=== PATIENT | female | born 1965 | race Caucasian/White ===

== ENCOUNTER 2022-08-27 06:59 | Inpatient (IN) ==
[2022-08-27] MEDS ORDERED: BUMETANIDE 1 MG/4 ML VIAL IV ONE ×3 (07:22→11:56)
[2022-08-27] MEDS ORDERED: NITROGLYCERIN 0.4 MG TAB.SUBL SL ONE (07:22)
[2022-08-27 07:24] LABS: POC Calcium, Ionized 1.02 (1.16-1.32); POC Potassium 4.6 (3.3-5.1)
[2022-08-27 08:10] LABS: Basophils # (Auto) 0.04 K/mcL (0.00-0.30); Basophils % (Auto) 0.3 % (0.0-2.0); Eosinophils # (Auto) 0.09 K/mcL (0.00-0.70); Eosinophils % (Auto) 0.7 % (0.0-7.0); Hematocrit 43.3 % (34.1-44.9); Hemoglobin 13.7 g/dL (11.2-15.7); Lymphocytes # (Auto) 1.54 K/mcL (1.50-4.80); Lymphocytes % (Auto) 12.5 % (15.5-49.0); Mean Cell Volume 95.4 fL (80.0-100.0); Mean Corpuscular HGB Conc 31.6 g/dL (31.0-36.0); Mean Platelet Volume 10.2 fL (8.8-12.5); Monocytes # (Auto) 0.79 K/mcL (0.10-0.90); Monocytes % (Auto) 6.4 % (1.0-12.0); Neutrophils % (Auto) 79.4 % (38.0-78.0); Platelet Count 280 K/mcL (140-440); RBC 4.54 M/mcL (3.59-5.38); Red Cell Distribution Width 14.7 % (11.5-14.5); WBC 12.4 K/mcL (4.5-11.0)
--- NOTE | 2022-08-27 08:41 | Emergency Department Note ---
HPI General Chief complaint: Shortness of Breath/Dyspnea Stated complaint: shortness of breath Time Seen by Provider: 08/27/22 07:22 Source: patient Mode of arrival: ambulatory Limitations: no limitations History of Present Illness HPI Narrative: Narrative: This 56-year-old female presents complaining of shortness of breath increasing over the last 2 to 3 weeks. She states she has been seen in ED's x3 at [facility] and here so far. She states she is compliant with her diuretics (Lasix and spironolactone). She previously was a smoker but states she has not in 2 weeks. She denies any chest pain or palpitations but does state that she has increased dyspnea on exertion over these last 2 weeks. She denies any increased sputum production fever or chills but does states she feels sweats from time to time. She has a mixed history of COPD and CHF with a mitral valve replacement in the distant past. She is also in atrial fib chronically (last normal sinus rhythm was in 2020 per EKGs) and is on anticoagulants as well amiodarone. Related Data Home Medications Medication Instructions Recorded Confirmed acetaminophen 500 mg tablet 500 mg PO .Q6-8H PRN Pain 07/23/21 08/27/22 (Tylenol Extra Strength) albuterol sulfate 90 mcg/actuation 2 puff inhalation .Q4-6H PRN sob 07/23/21 08/27/22 aerosol inhaler (ProAir HFA) hydroxyzine HCl 25 mg tablet 25 mg PO TID PRN Anxiety 07/23/21 08/27/22 ipratropium 20 mcg-albuterol 100 2 puff inhalation BID 07/23/21 08/27/22 mcg/actuation mist for inhalation levetiracetam 250 mg tablet 500 mg PO QDAY 07/23/21 08/27/22 (Keppra) lisinopril 2.5 mg tablet 2.5 mg PO QDAY 07/23/21 08/27/22 marijuana edibles 1 dose PO DAILY 07/23/21 08/27/22 warfarin 5 mg tablet 7.5 mg PO QDAY 07/23/21 08/27/22 prednisone 20 mg tablet 20 mg PO DAILY 08/27/22 08/27/22 Previous Rx's Medication Instructions Recorded furosemide 40 mg tablet (Lasix) 40 mg PO QAM #60 tabs 08/15/22 metoprolol succinate 100 mg 100 mg PO QDAY #60 tabs 08/15/22 tablet,extended release 24 hr ondansetron 4 mg disintegrating 4 mg PO Q8H PRN nausea and 08/15/22 tablet vomiting #10 tabs budesonide 0.5 mg/2 mL suspension 0.5 mg (2 mL) inhalation Q12 30 08/31/22 for nebulization days #120 mL cefdinir 300 mg capsule 300 mg PO BID #8 caps 08/31/22 guaifenesin 600 mg tablet, 600 mg PO BID #8 tabs 08/31/22 extended release 12 hr (Mucus Relief ER) metoprolol succinate 50 mg 150 mg PO DAILY #180 tabs 08/31/22 tablet,extended release 24 hr Allergies Allergy/AdvReac Type Severity Reaction Status Date / Time Penicillins AdvReac Mild Vomiting Verified 08/31/22 07:08 tramadol AdvReac Mild sick Verified 08/31/22 07:08 Review of Systems ROS ROS Narrative: Narrative: All systems ED: reviewed and negative except as stated. [facility] Narrative Patient History Narrative: Narrative: Medical/Surgical/Family History All Active Problems (Updated 08/29/22 @ 11:30 by Anderson Casillas MD) Cardiomyopathy (Acute) A-fib (Acute) Supratherapeutic INR (Acute) Congestive heart failure (Acute) Acute bronchospasm (Acute) Atrial fibrillation/flutter (Acute) Chronic anticoagulation (Acute) Headache (Acute) History of artificial heart valve (Acute) Palpitations (Acute) Atrial premature beats (Acute) Left against medical advice (Acute) Medical History Chronic anticoagulation Headache Social History Smoking Status: Current every day smoker Exam Narrative Narrative: Narrative: General: moderate distress secondary to dyspnea. Alert and oriented x3, answers questions cogently, patient laying back in bed with grossly audible rales. Skin: Well perfused hydrated without exanthem or cyanosis. Periphery: no pe ripheral edema, pos jugular venous distention Pulmonary: Coarse rales bilaterallym to approximately mcfp up, no wheezing. Cardiovascular: Rapid regular rate without murmur General Limitations: no limitations Course Vital Signs Vital signs: Vital Signs Temperature 97 F 08/27/22 07:01 Pulse Rate 111 H 08/27/22 07:01 Respiratory Rate 25 H 08/27/22 07:01 Blood Pressure 114/93 08/27/22 07:01 Pulse Oximetry (%) 100 08/27/22 07:01 Oxygen Delivery Method Room Air 08/27/22 07:01 Temperature 97.0 F 08/31/22 11:47 Pulse Rate 85 08/31/22 11:47 Respiratory Rate 12 08/31/22 11:47 Blood Pressure 113/82 08/31/22 11:47 Pulse Oximetry (%) 98 08/31/22 11:47 Oxygen Delivery Method Room Air 08/31/22 11:47 MDM MDM Narrative Medical decision making narrative: Narrative: Patient appears to be in pulmonary edema, without much bronchospasm - was given Bumex 1.0 mg and nitro sublingual x3. Reevaluated patient at 0835 patient was resting more comfortably and her previous distress seemed resolved, but still with coarse rales bilaterally. 0930, patient with coarse rales still but wheezing was heard at this time. Patient was treated with albuterol, pre dnisone and azithromycin. Patient appears to be tiring - will admit for pulmonary edema, mixed COPD. WBCs 12.4, positive left shift, PT/INR 19.5, 1.7; NPB improved from last, at 5675, procalcitonin slightly elevated 0.11, troponin less than 0.02. 1115 patient was complaining of pressure on her chest. EKG was repeated showed no changes suggestive of ischemia. As read by me the patient's EKGs has intermittent sinus tach, atrial fib/flutter with a rapid ventricular response, occasional PVCs and a prolonged QT interval of 543. Patient was treated with diltiazem 20 mg IV, and Lovenox 60 mg subcu. Sepsis Sepsis Identified: No Lab Data 08/31/22 05:18 08/30/22 05:46 Labs: Lab Results 08/27/22 08/27/22 08/27/22 Range/Units 07:18 07:20 07:25 WBC 12.4 H (4.5-11.0) K/mcL RBC 4.54 (3.59-5.38) M/mcL Hgb 13.7 (11.2-15.7) g/dL Hct 43.3 (34.1-44.9) % POC Hct 45.0 (36-48) MCV 95.4 (80.0-100.0) fL MCH 30.2 (26.0-34.0) pg MCHC 31.6 (31.0-36.0) g/dL RDW 14.7 H (11.5-14.5) % Plt Count 280 (140-440) K/mcL MPV 10.2 (8.8-12.5) fL Immature Gran % (Auto) 0.7 H (0.0-0.5) % Neut % (Auto) 79.4 H (38.0-78.0) % Lymph % (Auto) 12.5 L (15.5-49.0) % [place] % (Auto) 6.4 (1.0-12.0) % Eos % (Auto) 0.7 (0.0-7.0) % Baso % (Auto) 0.3 (0.0-2.0) % Lymph # (Auto) 1.54 (1.50-4.80) K/mcL [place] # (Auto) 0.79 (0.10-0.90) K/mcL Eos # (Auto) 0.09 (0.00-0.70) K/mcL Baso # (Auto) 0.04 (0.00-0.30) K/mcL Immature Gran # 0.09 H (0.00-0.05) K/mcl Absolute Neutrophils 9.80 H (1.80-8.00) K/mcL POC PT (11.9-14.5) POC INR (0.8-1.2) D-Dimer POC Sodium 140 (133-145) POC Potassium 4.6 (3.3-5.1) POC Chloride 100 (96-108) POC Total CO2 32.0 H (22-30) POC BUN 42 H (6-20) POC Creatinine 1.0 (0.6-1.2) POC Glucose 117 H (70-105) POC WB Ioniz Calcium 1.02 L (1.16-1.32) NT-Pro-B Natriuret Pep (<125.0) pg/mL Procalcitonin (<0.10) ng/mL POC Troponin I < 0.02 (0.00-0.08) 08/27/22 08/27/22 08/27/22 Range/Units 07:25 07:25 07:25 WBC (4.5-11.0) K/mcL RBC (3.59-5.38) M/mcL Hgb (11.2-15.7) g/dL Hct (34.1-44.9) % POC Hct (36-48) MCV (80.0-100.0) fL MCH (26.0-34.0) pg MCHC (31.0-36.0) g/dL RDW (11.5-14.5) % Plt Count (140-440) K/mcL MPV (8.8-12.5) fL Immature Gran % (Auto) (0.0-0.5) % Neut % (Auto) (38.0-78.0) % Lymph % (Auto) (15.5-49.0) % [place] % (Auto) (1.0-12.0) % Eos % (Auto) (0.0-7.0) % Baso % (Auto) (0.0-2.0) % Lymph # (Auto) (1.50-4.80) K/mcL [place] # (Auto) (0.10-0.90) K/mcL Eos # (Auto) (0.00-0.70) K/mcL Baso # (Auto) (0.00-0.30) K/mcL Immature Gran # (0.00-0.05) K/mcl Absolute Neutrophils (1.80-8.00) K/mcL POC PT (11.9-14.5) POC INR (0.8-1.2) D-Dimer TNP POC Sodium (133-145) POC Potassium (3.3-5.1) POC Chloride (96-108) POC Total CO2 (22-30) POC BUN (6-20) POC Creatinine (0.6-1.2) POC Glucose (70-105) POC WB Ioniz Calcium (1.16-1.32) NT-Pro-B Natriuret Pep 5675.0 H (<125.0) pg/mL Procalcitonin 0.11 H (<0.10) ng/mL POC Troponin I (0.00-0.08) 03/24/23 03/24/23 Range/Units 08:57 12:16 WBC (4.5-11.0) K/mcL RBC (3.59-5.38) M/mcL Hgb (11.2-15.7) g/dL Hct (34.1-44.9) % POC Hct (36-48) MCV (80.0-100.0) fL MCH (26.0-34.0) pg MCHC (31.0-36.0) g/dL RDW (11.5-14.5) % Plt Count (140-440) K/mcL MPV (8.8-12.5) fL Immature Gran % (Auto) (0.0-0.5) % Neut % (Auto) (38.0-78.0) % Lymph % (Auto) (15.5-49.0) % [place] % (Auto) (1.0-12.0) % Eos % (Auto) (0.0-7.0) % Baso % (Auto) (0.0-2.0) % Lymph # (Auto) (1.50-4.80) K/mcL [place] # (Auto) (0.10-0.90) K/mcL Eos # (Auto) (0.00-0.70) K/mcL Baso # (Auto) (0.00-0.30) K/mcL Immature Gran # (0.00-0.05) K/mcl Absolute Neutrophils (1.80-8.00) K/mcL POC PT 19.5 H (11.9-14.5) POC INR 1.7 H (0.8-1.2) D-Dimer POC Sodium (133-145) POC Potassium (3.3-5.1) POC Chloride (96-108) POC Total CO2 (22-30) POC BUN (6-20) POC Creatinine (0.6-1.2) POC Glucose (70-105) POC WB Ioniz Calcium (1.16-1.32) NT-Pro-B Natriuret Pep (<125.0) pg/mL Procalcitonin (<0.10) ng/mL POC Troponin I < 0.02 (0.00-0.08) Discharge Plan Patient/Caregiver Discharge Instructions Pt seen by SENIOR PAINTER/PA only: No Activity: increase activity as tolerated Patient Disposition: Xfer As Inpt ([facility]) Condition: Fair Discharge Date/Time: 08/27/22 13:45
[2022-08-27 09:00] LABS: POC INR 1.7 (0.8-1.2); POC Pro Time 19.5 (11.9-14.5)
--- NOTE | 2022-08-27 09:36 | Ultrasound Report ---
CLINICAL INFORMATION: CHF. Evaluate for pleural fluid COMPARISON: None. FINDINGS: No pleural effusions identified in either thoracic cavity. IMPRESSION: Negative Interpreted and Authenticated by: Nguyễn Carlos 08/27/22
--- NOTE | 2022-08-27 09:36 | XRay Report ---
CLINICAL INFORMATION: Dyspnea COMPARISON: 06/19/2018 baseline exam and 08/24/2022 TECHNIQUE: Portable FINDINGS: Sternotomy and mitral valve annuloplasty changes noted.. Moderate cardiomegaly shows slight increase. Mediastinum is normal. Pulmonary vessels are moderately distended with mild interstitial edema throughout both lungs predominantly in the perihilar regions. No infiltrates or effusions. IMPRESSION: Moderate CHF Interpreted and Authenticated by: Nguyễn Carlos 08/27/22
[2022-08-27] MEDS ORDERED: ALBUTEROL SULFATE 2.5 MG/3 ML NEBULIZER NEB ONE (10:33)
[2022-08-27] MEDS ORDERED: DEXAMETHASONE 10 MG/ML VIAL IV ONE (10:33)
[2022-08-27] MEDS ORDERED: AZITHROMYCIN 500 MG in DEXTROSE 5% IN WATER 250 ML IV ONE (10:34)
--- NOTE | 2022-08-27 10:59 | EKG ---
Test Date: 2022-08-27 Pat Name: Anyi Mora Department: ED Room: Gender: Female [employer]: LR : 1965 Requested By: Aneudy Mora Order Number: [id number] Reading MD: Nguyễn Solomon M.D. Measurements Intervals [place] Rate: 146 P: 67 DE: 135 QRS: 58 QRSD: 92 T: 97 QT: 344 QTc: 533 Interpretive Statements ATRIAL FLUTTER/FIBRILLATION, A-RATE 146 bpm NONSPECIFIC REPOL ABNORMALITY, DIFFUSE LEADS Electronically Signed On 08-27-2022 10:59:29 PDT by Nguyễn Solomon M.D. /store/[email or web address]/[id number]
[2022-08-27] MEDS ORDERED: DILTIAZEM 25 MG/5 ML VIAL IV ONE ×2 (11:48→11:54)
[2022-08-27] MEDS ORDERED: ENOXAPARIN 60 MG/0.6 ML SYRINGE SQ ONE (11:54)
--- NOTE | 2022-08-27 12:31 | Internal Med History&Physical ---
HPI History of Present Illness Patient information: Note initiated : 08/27/22 at 12:22 pm Service Date, if different from initiated Date: [] Patient: Anyi Mora a 56 y/o F admitted on for shortness of breath. Chief Complaint: [] History of present illness: Ms. Mora is a 56 year old F atient has history of A-fib, CHF, asthma/COPD overlap, status post [facility] valve 15 years ago for which she takes warfarin, seizure disorder, everyday smoker presented with increased shortness of breath for 2 to 3 weeks. Patient states she had been to ED at least 3 times at [facility]. Patient reports she has been compliant with all her pr escribed medications including diuretics, amiodarone and metoprolol. Patient reports increasing dyspnea on exertion, orthopnea and has to use 2 pillows at night, paroxysmal nocturnal dyspnea as well. Patient also reported cough and some increased in sputum production however denies any fever or chills. She is a smoker however has not smoking for past 2 weeks due to increased shortness of breath. She lives with her and denies any sick contact. EKG showed with RVR, ventricular rate 146 bpm, nonspecific ST-T wave changes. Prolonged QTc 543 msec. Troponin x2 was negative. proBNP was elevated 5675. WBC 14991 with neutrophilia, Procal 0.11, respiratory viral panel negative. PT/INR 19.5, 1.7 chest x-ray with mild interstitial edema throughout the lungs consistent with moderate CHF. Patient received diltiazem 20mg IV, Bumex 1 mg and nitroglycerin. Patient also received albuterol, prednisone and azithromycin. She remains in A-fib with RVR and will be admitted to ICU on diltiazem gtt. Constitutional Constitutional: Present fatigue and malaise; Absent chills or fever(s) EENT Eyes: Absent change in vision or diplopia Ears: Present decreased hearing; Absent ear discharge Nose, mouth and throat: Present epistaxis; Absent nasal discharge Cardiovascular Cardiovascular: Present dyspnea, orthopnea and paroxysmal nocturnal dyspnea; Absent chest pain Respiratory Respiratory: Present cough, dyspnea on exertion, wheezing and excessive phlegm production Gastrointestinal Gastrointestinal: Absent abdominal pain, diarrhea, hematemesis or melena Genitourinary Genitourinary: Absent dysuria, urinary frequency or urinary incontinence Musculoskeletal Musculoskeletal: Present muscle weakness; Absent arthralgias, back pain or joint swelling Integumentary Integumentary: Absent erythema or rash Neurological Neurological: Absent abnormal movements, abnormal speech or confusion Psychiatric Psychiatric: Absent confusion, depression or difficulty concentrating Endocrine Endocrine: Absent heat intolerance, palpitations or polydipsia Allergic/Immunologic Allergic/Immunologic: Absent uticaria PFSH PFSH All Active Problems (Updated 08/15/22 @ 15:48 by Mario Banegas MD) A-fib (Acute) Supratherapeutic INR (Acute) Congestive heart failure (Acute) Acute bronchospasm (Acute) Atrial fibrillation/flutter (Acute) Chronic anticoagulation (Acute) Headache (Acute) History of artificial heart valve (Acute) Palpitations (Acute) Atrial premature beats (Acute) Left against medical advice (Acute) Medical History Chronic anticoagulation Headache Social History smoking status: Current every day smoker MEDS/ALLERGIES Home Medications and Allergies Home Medications Medication Instructions Recorded Confirmed Type acetaminophen 500 mg tablet 500 mg PO .Q6-8H PRN Pain 07/23/21 08/27/22 History (Tylenol Extra Strength) albuterol sulfate 90 mcg/actuation 2 puff inhalation .Q4-6H PRN sob 07/23/21 08/27/22 History aerosol inhaler (ProAir HFA) amiodarone 200 mg tablet 200 mg PO BID 07/23/21 08/27/22 History hydroxyzine HCl 25 mg tablet 25 mg PO TID PRN Anxiety 07/23/21 08/27/22 History ipratropium 20 mcg-albuterol 100 2 puff inhalation BID 07/23/21 08/27/22 History mcg/actuation mist for inhalation levetiracetam 250 mg tablet 500 mg PO QDAY 07/23/21 08/27/22 History (Keppra) lisinopril 2.5 mg tablet 2.5 mg PO QDAY 07/23/21 08/27/22 History marijuana edibles 1 dose PO DAILY 07/23/21 08/27/22 History warfarin 5 mg tablet 7.5 mg PO QDAY 07/23/21 08/27/22 History furosemide 40 mg tablet (Lasix) 40 mg PO QAM #60 tabs 08/15/22 08/27/22 Rx metoprolol succinate 100 mg 100 mg PO QDAY #60 tabs 08/15/22 08/27/22 Rx tablet,extended release 24 hr ondansetron 4 mg disintegrating 4 mg PO Q8H PRN nausea and 08/15/22 08/27/22 Rx tablet vomiting #10 tabs doxycycline hyclate 100 mg tablet 100 mg PO BID 08/27/22 08/27/22 History prednisone 20 mg tablet 20 mg PO DAILY 08/27/22 08/27/22 History Allergies Allergy/AdvReac Type Severity Reaction Status Date / Time tramadol Allergy Intermediate sick Verified 08/27/22 07:03 Penicillins AdvReac Vomiting Verified 08/27/22 07:03 EXAM Constitutional Vitals: Temp Pulse Resp BP Pulse Ox O2 Del Method 97 F 164 H 19 136/91 98 Room Air 08/27/22 07:01 08/27/22 11:31 08/27/22 11:31 08/27/22 11:31 08/27/22 11:31 08/27/22 07:01 General appearance: average body habitus, cooperative and mild distress Head Head exam: Present atraumatic and normocephalic Eye Eye exam: Present EOMI and PERRL; Absent conjunctival injection or scleral icterus Pupils: Present normal accommodation ENT ENT exam: Present mucous membranes dry and normal oropharynx Neck Neck exam: Absent lymphadenopathy, tenderness or thyromegaly Respiratory Additional comments: Mild tachypnea, bilateral rhonchi and wheezing Cardiovascular Cardiovascular exam: Present irregular rhythm, +S1, +S2 and systolic murmur GI/Abdominal GI/Abdominal exam: Present normal bowel sounds and soft; Absent organomegaly, rebound or tenderness Extremities Exam Extremities exam: Present normal capillary refill; Absent calf tenderness or pedal edema Neurological Exam Neurological exam: Present alert, CN II-XII intact and oriented X3; Absent motor sensory deficit Psychiatric Psychiatric exam: Present anxious and normal mood; Absent suicidal ideation Skin Skin exam: Present dry and intact; Absent erythema or rash DATA Data Completed and Pending Labs: Labs from last 24 hours 08/27/22 08/27/22 08/27/22 08:57 07:25 07:25 WBC RBC Hgb Hct POC Hct MCV MCH MCHC RDW Plt Count MPV Immature Gran % (Auto) Neut % (Auto) Lymph % (Auto) [place] % (Auto) Eos % (Auto) Baso % (Auto) Lymph # (Auto) [place] # (Auto) Eos # (Auto) Baso # (Auto) Immature Gran # Absolute Neutrophils POC PT 19.5 H POC INR 1.7 H D-Dimer Pending POC Sodium POC Potassium POC Chloride POC Total CO2 POC BUN POC Creatinine POC Glucose POC WB Ioniz Calcium NT-Pro-B Natriuret Pep Procalcitonin 0.11 H POC Troponin I 08/27/22 08/27/22 08/27/22 07:25 07:25 07:20 WBC 12.4 H RBC 4.54 Hgb 13.7 Hct 43.3 POC Hct 45.0 MCV 95.4 MCH 30.2 MCHC 31.6 RDW 14.7 H Plt Count 280 MPV 10.2 Immature Gran % (Auto) 0.7 H Neut % (Auto) 79.4 H Lymph % (Auto) 12.5 L [place] % (Auto) 6.4 Eos % (Auto) 0.7 Baso % (Auto) 0.3 Lymph # (Auto) 1.54 [place] # (Auto) 0.79 Eos # (Auto) 0.09 Baso # (Auto) 0.04 Immature Gran # 0.09 H Absolute Neutrophils 9.80 H POC PT POC INR D-Dimer POC Sodium 140 POC Potassium 4.6 POC Chloride 100 POC Total CO2 32.0 H POC BUN 42 H POC Creatinine 1.0 POC Glucose 117 H POC WB Ioniz Calcium 1.02 L NT-Pro-B Natriuret Pep 5675.0 H Procalcitonin POC Troponin I 08/27/22 07:18 WBC RBC Hgb Hct POC Hct MCV MCH MCHC RDW Plt Count MPV Immature Gran % (Auto) Neut % (Auto) Lymph % (Auto) [place] % (Auto) Eos % (Auto) Baso % (Auto) Lymph # (Auto) [place] # (Auto) Eos # (Auto) Baso # (Auto) Immature Gran # Absolute Neutrophils POC PT POC INR D-Dimer POC Sodium POC Potassium POC Chloride POC Total CO2 POC BUN POC Creatinine POC Glucose POC WB Ioniz Calcium NT-Pro-B Natriuret Pep Procalcitonin POC Troponin I < 0.02 A/P Narrative A/P Narrative: Assessment and plan Atrial fibrillation with RVR. EKG with A-fib with RVR, ventricular rate 146 bpm. Patient reports compliance with her metoprolol and amiodarone. Heart rate is still elevated. We will start her on diltiazem gtt. We will continue home dose amiodarone and metoprolol. Will obtain serum magnesium. TSH ordered. Echocardiogram ordered. CTA chest to rule out PE. Continue anticoagulation with warfarin. Daily INR Acute on chronic CHF exacerbation. Patient received IV Bumex in the ER. We will continue with home dose Lasix. Monitor I's and O's. Monitor renal function and electrolytes Sepsis. Patient presented with tachycardia, tachypnea, leukocytosis and COPD exacerbation, suspected pneumonia. COPD exacerbation. Patient with cough, shortness of breath, bilateral wheezing and Rales, leukocytosis present. Chest x-ray without any acute infiltrates. Will obtain CT chest to rule out pneumonia since procalcitonin is intermediate. We will treat with DuoNebs, IV azithromycin for 5 days. Active smoker. Counseled on smoking cessation more than 10 minutes. Patient refused nicotine replacement therapy Status post mitral valve replacement. Patient had [facility] valve 15 years ago. She is on warfarin, INR is subtherapeutic. We will continue with warfarin. DVT prophylaxis, on warfarin CODE STATUS, full code Time Spent With Patient Time: Total time spent is greater than 50% in coordination of care (as documented) at patient's floor/unit and/or counseling patient: Initial: Total time with patient: 55 - 74 minutes Critical Care Time: Yes Total Critical Care Time: 55
[2022-08-27] MEDS: DILTIAZEM 125 MG in DEXTROSE 5% IN WATER 100 ML IV SCH (13:21)
[2022-08-27] MEDS ORDERED: SENNOSIDES 1 TABLET PO PRN (13:47)
[2022-08-27] MEDS ORDERED: ACETAMINOPHEN 500 MG TABLET PO PRN (13:47)
[2022-08-27] MEDS ORDERED: 0.9 % SODIUM CHLORIDE 500 ML IV ONE (13:47)
[2022-08-27] MEDS ORDERED: [UNRECOGNIZED DRUG - OTHER] INHALATION SCH (13:47)
[2022-08-27] MEDS ORDERED: BUDESONIDE 0.5 MG/2 ML AMPUL.NEB ONE (14:05)
[2022-08-27] MEDS ORDERED: IPRATROPIUM/ALBUTEROL 3 ML AMPUL.NEB NEB ONE (14:05)
[2022-08-27] MEDS ORDERED: ONDANSETRON 4 MG ODT TABLET PO PRN (14:07)
[2022-08-27] MEDS: BUDESONIDE 0.5 MG/2 ML AMPUL.NEB NEB SCH ×2 (14:08→20:36)
[2022-08-27] MEDS: 0.9 % SODIUM CHLORIDE 10 ML SYRINGE IV SCH ×2 (14:38→22:07)
[2022-08-27 15:16] LABS: Thyroid Stimulating Hormone 1.62 uIU/mL (0.27-5.01)
[2022-08-27 15:20] LABS: ALT/SGPT 76 U/L (<40); AST/SGOT 37 U/L (<32); Albumin 4.1 gm/dL (3.2-5.2); Albumin/Globulin Ratio 1.6 (1.0-2.3); Alkaline Phosphatase 136 U/L (39-117); Bilirubin,Total 0.4 mg/dL (0.1-1.0); Blood Urea Nitrogen 22 mg/dL (6-20); Calcium 8.6 mg/dL (8.6-10.4); Carbon Dioxide 29 mmol/L (22-30); Chloride 100 mmol/L (96-108); Globulin 2.6 gm/dL (2.2-3.7); Glomerular Filtration Rate 72; Glucose 128 mg/dL (70-105)
[2022-08-27] MEDS: ACTUATION MIST INH SCH ×2 (17:25→20:01)
[2022-08-27] MEDS: IPRATROPIUM ALBUTEROL INH SCH ×2 (17:25→20:01)
[2022-08-27] MEDS ORDERED: IOPAMIDOL 100 ML BOTTLE IV ONE (18:40)
--- NOTE | 2022-08-27 19:14 | Cat Scan Report ---
CLINICAL INFORMATION: Atrial fibrillation. COMPARISON: None. TECHNIQUE: 80ml of Isovue-370 were injected intravenously. Using SmartPrep to maximize pulmonary artery opacification, .625mm helical slices were obtained from the lung apices through the lung bases. Following reconstruction, 2.5 mm sagittal, coronal, and axial reformations were processed. The exam was reviewed at mediastinal, lung, and bone windows. The exam was performed using radiation dose optimization techniques including, but not limited to, automated exposure control, adjustment of the mA and/or kV according to patient size and use of iterative reconstruction technique. FINDINGS: Pulmonary parenchymal windows show mild edema in the interlobular septa compatible with CHF. There is minimal fibrosis within the lingula. No effusions.. Pleural spaces are unremarkable-no effusions. Mediastinal windows show the heart is moderately enlarged. Mitral valve prostheses appreciated. There is only minimal calcific plaque in the coronary arteries. Sternotomy changes noted. The pulmonary arteries are well opacified and mildly distended-no evidence of embolus. Thoracic aorta is normal. There is no adenopathy in the mediastinal, hilar or axillary regions. Esophagus is grossly normal. The thyroid is normal. Bones and soft tissues the chest wall show no abnormality. IMPRESSION: Mild CHF. No evidence of pulmonary embolus. Interpreted and Authenticated by: Nguyễn Carlos 08/27/22
[2022-08-27] MEDS: IPRATROPIUM/ALBUTEROL 3 ML AMPUL.NEB NEB SCH (20:36)
[2022-08-27] MEDS: guaiFENesin 600 MG TAB.SR.12H PO SCH (20:43)
[2022-08-27] MEDS: AMIODARONE HCL 200 MG TABLET PO SCH (20:43)
[2022-08-27] MEDS: hydrOXYzine 25 MG TABLET PO PRN (20:43)
[2022-08-27] MEDS ORDERED: [UNRECOGNIZED DRUG - OTHER] PO SCH (21:00)
[2022-08-28] MEDS: DILTIAZEM 125 MG in DEXTROSE 5% IN WATER 100 ML IV SCH ×3 (02:03→13:10)
[2022-08-28] MEDS: 0.9 % SODIUM CHLORIDE 10 ML SYRINGE IV SCH ×3 (06:15→23:57)
[2022-08-28 08:03] LABS: Hematocrit 42.9 % (34.1-44.9); Hemoglobin 13.7 g/dL (11.2-15.7); Mean Cell Volume 94.5 fL (80.0-100.0); Mean Corpuscular HGB Conc 31.9 g/dL (31.0-36.0); Mean Platelet Volume 9.8 fL (8.8-12.5); Platelet Count 295 K/mcL (140-440); RBC 4.54 M/mcL (3.59-5.38); Red Cell Distribution Width 14.6 % (11.5-14.5); WBC 16.7 K/mcL (4.5-11.0)
[2022-08-28 08:16] LABS: INR 1.2 (0.9-1.1); Prothrombin Time 15.9 sec (11.9-14.5)
[2022-08-28] MEDS: levETIRAcetam 500 MG TABLET PO SCH (08:21)
[2022-08-28] MEDS: LISINOPRIL 2.5 MG TABLET PO SCH (08:21)
[2022-08-28] MEDS: METOPROLOL SUCCINATE 50 MG TAB.XL.24H PO SCH (08:21)
[2022-08-28] MEDS: SPIRONOLACTONE 25 MG TABLET PO SCH (08:21)
[2022-08-28] MEDS: guaiFENesin 600 MG TAB.SR.12H PO SCH ×2 (08:21→19:53)
[2022-08-28] MEDS: AMIODARONE HCL 200 MG TABLET PO SCH ×2 (08:21→19:53)
[2022-08-28] MEDS: FUROSEMIDE 40 MG TABLET PO SCH (08:21)
[2022-08-28] MEDS: PANTOPRAZOLE 40 MG TABLET PO SCH (08:21)
[2022-08-28 08:34] LABS: ALT/SGPT 65 U/L (<40); AST/SGOT 26 U/L (<32); Albumin 3.8 gm/dL (3.2-5.2); Albumin/Globulin Ratio 1.3 (1.0-2.3); Alkaline Phosphatase 130 U/L (39-117); Bilirubin,Total 0.6 mg/dL (0.1-1.0); Blood Urea Nitrogen 17 mg/dL (6-20); Calcium 8.7 mg/dL (8.6-10.4); Carbon Dioxide 26 mmol/L (22-30); Chloride 100 mmol/L (96-108); Globulin 2.9 gm/dL (2.2-3.7); Glomerular Filtration Rate 72; Glucose 156 mg/dL (70-105)
[2022-08-28 08:37] LABS: Lymphocytes % 6 % (15-49); Monocytes % (Manual) 4 % (1-12); Platelet Estimate NORMAL (Normal); RBC Morphology NORMAL (Normal); Reactive Lymphocytes 1 % (0-2); Segmented Neutrophils % 89 % (38-78)
[2022-08-28] MEDS: IPRATROPIUM/ALBUTEROL 3 ML AMPUL.NEB NEB SCH ×4 (08:58→21:05)
[2022-08-28] MEDS: BUDESONIDE 0.5 MG/2 ML AMPUL.NEB NEB SCH ×2 (08:58→21:05)
[2022-08-28] MEDS: IPRATROPIUM ALBUTEROL INH SCH ×4 (09:33→19:53)
[2022-08-28] MEDS: ACTUATION MIST INH SCH ×4 (09:33→19:53)
[2022-08-28] MEDS: AZITHROMYCIN 500 MG in DEXTROSE 5% IN WATER 250 ML IV SCH (10:06)
--- NOTE | 2022-08-28 11:39 | Internal Med Progress Note ---
SUBJECTIVE Subjective Patient information: Note initiated : 08/28/22 at 11:35 am Service Date, if different from initiated Date: [] Patient: Anyi Mora a 56 y/o F admitted on 08/27/22 for shortness of breath. Chief Complaint: [] Additional PMFSH (Level 3 Only): Ms. Mora is a 56 year old F atient has history of A-fib, CHF, asthma/COPD overlap, status post [facility] valve 15 years ago for which she takes warfarin, seizure disorder, everyday smoker presented with increased shortness of breath for 2 to 3 weeks. Patient states she had been to ED at least 3 times at [facility]. Patient reports she has been compliant with all her prescribed medications including diuretics, amiodarone and metoprolol. Patient reports increasing dyspnea on exertion, orthopnea and has to use 2 pillows at night, paroxysmal nocturnal dyspnea as well. Patient also reported cough and some increased in sputum production however denies any fever or chills. She is a smoker however has not smoking for past 2 weeks due to increased shortness of breath. She lives with her and denies any sick contact. EKG showed with RVR, ventricular rate 146 bpm, nonspecific ST-T wave changes. Prolonged QTc 543 msec. Troponin x2 was negative. proBNP was elevated 5675. WBC 65729 with neutrophilia, Procal 0.11, respiratory viral panel negative. PT/INR 19.5, 1.7 chest x-ray with mild interstitial edema throughout the lungs consistent with moderate CHF. Patient received diltiazem 20mg IV, Bumex 1 mg and nitroglycerin. Patient also received albuterol, prednisone and azithromycin. Patient was admitted to ICU on diltiazem gtt. for A-fib with RVR 08/28. Patient seen and examined. Vitals reviewed. Lab work reviewed. Patient stated she is feeling a bit better. She remains on diltiazem gtt, heart rate still fluctuates going up to 120 at times. WBC counts went up to 16,000. CTA chest reviewed and discussed. No evidence of PE or clear infiltrate. Patient is on azithromycin. Review of systems Constitutional Constitutional: No fever or chills, feels a bit better EENT Eyes: Absent change in vision or diplopia Ears: Present decreased hearing; Absent ear discharge Nose, mouth and throat: Present epistaxis; Absent nasal discharge Cardiovascular Cardiovascular: Present dyspnea, orthopnea and paroxysmal nocturnal dyspnea; Absent chest pain Respiratory Respiratory: Present less cough and wheezing, minimal sputum production Gastrointestinal Gastrointestinal: Absent abdominal pain, diarrhea, hematemesis or melena Genitourinary Genitourinary: Absent dysuria, urinary frequency or urinary incontinence Musculoskeletal Musculoskeletal: Absent muscle weakness; Absent arthralgias, back pain or joint swelling Integumentary Integumentary: Absent erythema or rash Neurological Neurological: Absent abnormal movements, abnormal speech or confusion Psychiatric Psychiatric: Absent confusion, depression or difficulty concentrating Endocrine Endocrine: Absent heat intolerance, palpitations or polydipsia Allergic/Immunologic Allergic/Immunologic: Absent uticaria EXAM Constitutional General appearance: Well-nourished female, resting in bed, in no acute distress Head Head exam: Present atraumatic and normocephalic Eye Eye exam: Present EOMI and PERRL; Absent conjunctival injection or scleral icterus Pupils: Present normal accommodation ENT ENT exam: Present mucous membranes dry and normal oropharynx Neck Neck exam: Absent lymphadenopathy, tenderness or thyromegaly Respiratory Additional comments: Bilateral rhonchi and wheeze, improved from before, 96% on room air Cardiovascular Cardiovascular exam: Present irregular rhythm, +S1, +S2 and systolic murmur GI/Abdominal GI/Abdominal exam: Present normal bowel sounds and soft; Absent organomegaly, rebound or tenderness Extremities Exam Extremities exam: Present normal capillary refill; Absent calf tenderness or pedal edema Neurological Exam Neurological exam: Present alert, CN II-XII intact and oriented X3; Absent motor sensory deficit Psychiatric Psychiatric exam: Present anxious and normal mood; Absent suicidal ideation Skin Skin exam: Present dry and intact; Absent erythema or rash Assessment and plan Atrial fibrillation with RVR. EKG with A-fib with RVR, ventricular rate 146 bpm. Patient reports compliance with her metoprolol and amiodarone. Troponin negative. TSH within normal limit. Electrolytes stable. CT chest angiogram with no PE. A-fib not rate controlled, current heart rate goes up to 120s. Patient is on diltiazem gtt., start p.o. Cardizem 30 mg every 8 hours and monitor blood pressure closely. Continue home dose amiodarone and metoprolol. INR still subtherapeutic, pharmacy to dose warfarin, input appreciated. Daily INR echo is pending. Acute on chronic CHF exacerbation. Patient received IV Bumex in the ER. Continue with home dose Lasix. Monitor I's and O's. Monitor renal function and electrolytes Sepsis. Patient presented with tachycardia, tachypnea, leukocytosis and COPD exacerbation COPD exacerbation. Patient with cough, shortness of breath, bilateral wheezing and Rales, leukocytosis present. Chest x-ray without any acute infiltrates. CT angiogram chest showed no evidence of PE, mild CHF. No significant infiltrate. DuoNebs, IV azithromycin for 5 days. Active smoker. Counseled on smoking cessation. Patient refused nicotine replacement therapy Status post mitral valve replacement. Patient had [facility] G[facility] valve 15 years ago. She is on warfarin, INR is subtherapeutic. We will continue with warfarin. DVT prophylaxis, on warfarin CODE STATUS, full code Portions of this chart may have been created with [employer] voice recognition software. Occasional wrong-word or sound-like substitutions may have occurred due to the inherent limitations of voice recognition software. Please read the chart carefully and recognize, using context, where the substitutions have occurred. Constitutional Vitals: Vital Signs Temp Pulse Resp BP Pulse Ox O2 Del Method 98.5 F 93 H 25 H 123/80 98 Room Air 08/28/22 08:00 08/28/22 08:58 08/28/22 08:58 08/28/22 08:01 08/28/22 08:58 08/28/22 08:58 Period Temp Pulse Resp BP Sys/Hearn Pulse Ox O2 Del Method O2 Flow Rate Last 24 Hr 97.3 F-98.5 F 32-156 8-30 92-123/62-104 90-100 Room Air-Room Air Intake and Output 08/27/22 08/28/22 08/28/22 19:59 03:59 11:59 Intake Total 1145 322 270 Output Total 3200 850 300 Balance -2054 Weight 66.877 kg 67.222 kg Intake & Output: Intake & Output 08/27/22 08/28/22 08/28/22 19:59 03:59 11:59 Intake Total 1145 322 270 Output Total 3200 850 300 Balance -2054 Weight 66.877 kg 67.222 kg Intake: IV 665 82 30 Sodium Chloride 0.9% 500 ml @ 500 Wide Open IV BOLUS ONE Rx#: [id number] Zithromax 500 mg In Dextrose 5% 165 in Water 250 ml @ 250 mls/hr IV ONCE ONE Rx#:[id number] Cardizem 125 mg In Dextrose 5% 82 30 in Water 100 ml @ 5 MG/HR 5 mls /hr IV Q12H [facility] Rx#:[id number] Oral 480 240 240 Output: Void Amount 3200 850 300 Other: Meal Breakfast Percent of Meal Consumed 100% Feeding Ability Independent Urine Appearance Clear Clear Urine Color Yellow Bright Yellow Dark Yellow Stool Size Small Stool Color Brown Green Stool Consistency Radha # Bowel Movements 1 OBJ DATA Labs 08/28/22 07:06 08/28/22 07:06 Labs: Abnormal Lab Results 08/28/22 08/28/22 08/28/22 07:06 07:06 07:06 WBC 16.7 H RDW 14.6 H Immature Gran % (Auto) Neut % (Auto) Lymph % (Auto) Seg Neutrophils % 89 H Lymphocytes % 6 L Immature Gran # Absolute Neutrophils POC PT PT 15.9 H POC INR INR 1.2 H POC Total CO2 POC BUN BUN Glucose 156 H POC Glucose POC WB Ioniz Calcium AST ALT 65 H Alkaline Phosphatase 130 H NT-Pro-B Natriuret Pep Procalcitonin 08/27/22 08/27/22 08/27/22 14:07 08:57 07:25 WBC RDW Immature Gran % (Auto) Neut % (Auto) Lymph % (Auto) Seg Neutrophils % Lymphocytes % Immature Gran # Absolute Neutrophils POC PT 19.5 H PT POC INR 1.7 H INR POC Total CO2 POC BUN BUN 22 H Glucose 128 H POC Glucose POC WB Ioniz Calcium AST 37 H ALT 76 H Alkaline Phosphatase 136 H NT-Pro-B Natriuret Pep Procalcitonin 0.11 H 08/27/22 08/27/22 08/27/22 07:25 07:25 07:20 WBC 12.4 H RDW 14.7 H Immature Gran % (Auto) 0.7 H Neut % (Auto) 79.4 H Lymph % (Auto) 12.5 L Seg Neutrophils % Lymphocytes % Immature Gran # 0.09 H Absolute Neutrophils 9.80 H POC PT PT POC INR INR POC Total CO2 32.0 H POC BUN 42 H BUN Glucose POC Glucose 117 H POC WB Ioniz Calcium 1.02 L AST ALT Alkaline Phosphatase NT-Pro-B Natriuret Pep 5675.0 H Procalcitonin Meds: Medications Acetaminophen (Acetaminophen 500 Mg Tablet) 500 mg PO Q6HP PRN; Protocol PRN Reason: Pain Last Admin: 08/27/22 20:43 Dose: 500 mg Albuterol/Ipratropium (Ipratropium/Albuterol 3 Ml Ampul.Neb) 3 ml NEB QID [facility] Last Admin: 08/28/22 08:58 Dose: 3 ml Amiodarone HCl (Amiodarone Hcl 200 Mg Tablet) 200 mg PO BID [facility] Last Admin: 08/28/22 08:21 Dose: 200 mg Budesonide (Budesonide 0.5 Mg/2 Ml Ampul.Neb) 0.5 mg NEB Q12 [facility] Last Admin: 08/28/22 08:58 Dose: 0.5 mg Furosemide (Furosemide 40 Mg Tablet) 40 mg PO QAM [facility] Last Admin: 08/28/22 08:21 Dose: 40 mg Guaifenesin (Guaifenesin 600 Mg Tab.Sr.12h) 600 mg PO BID [facility] Last Admin: 08/28/22 08:21 Dose: 600 mg Hydroxyzine HCl (Hydroxyzine 25 Mg Tablet) 25 mg PO TIDP PRN PRN Reason: Anxiety Last Admin: 08/27/22 20:43 Dose: 25 mg Diltiazem HCl 125 mg/ Dextrose 125 mls @ 5 mls/hr IV Q12H [facility]; Protocol Last Admin: 08/28/22 07:49 Dose: 5 mg/hr, 5 mls/hr Azithromycin 500 mg/ Dextrose 250 mls @ 250 mls/hr IV Q24H [facility]; Protocol Stop: 08/31/22 09:59 Last Admin: 08/28/22 10:06 Dose: 250 mls/hr Levetiracetam (Levetiracetam 500 Mg Tablet) 500 mg PO QDAY [facility] Last Admin: 08/28/22 08:21 Dose: 500 mg Lisinopril (Lisinopril 2.5 Mg Tablet) 2.5 mg PO QDAY [facility] Last Admin: 08/28/22 08:21 Dose: 2.5 mg Metoprolol Succinate (Metoprolol Succinate 50 Mg Tab.Xl.24h) 100 mg PO QDAY [facility] Last Admin: 08/28/22 08:21 Dose: 100 mg Ondansetron HCl (Ondansetron 4 Mg Odt Tablet) 4 mg PO Q8HP PRN PRN Reason: nausea and vomiting Pantoprazole Sodium (Pantoprazole 40 Mg Tablet) 40 mg PO QAMAC [facility] Last Admin: 08/28/22 08:21 Dose: 40 mg Ipratropium- Albuterol 20-100 Mcg /Actuation Mist 2 dose INH QID [facility] Last Admin: 08/28/22 09:33 Dose: Not Given Senna (Sennosides 1 Tablet) 1 tab PO HSP PRN PRN Reason: Constipation Sodium Chloride (0.9 % Sodium Chloride 10 Ml Syringe) 10 ml IV Q8 [facility] Last Admin: 08/28/22 06:15 Dose: 10 ml Spironolactone (Spironolactone 25 Mg Tablet) 25 mg PO QDAY [facility] Last Admin: 08/28/22 08:21 Dose: 25 mg Warfarin Sodium (Warfarin Per Pharmacy) 1 order PO UD [facility] Warfarin Sodium (Warfarin 5 Mg Tablet) 10 mg PO DAILY@1400 [facility] A/P Time Spent With Patient Time: Total time spent is greater than 50% in coordination of care (as documented) at patient's floor/unit and/or counseling patient: Critical Care Time: Yes Total Critical Care Time: 55
[2022-08-28] MEDS: hydrOXYzine 25 MG TABLET PO PRN (12:33)
[2022-08-28] MEDS: oxyCODONE HCL 5 MG TABLET PO PRN ×2 (12:53→19:53)
[2022-08-28] MEDS: DILTIAZEM 30 MG TABLET PO SCH ×2 (13:01→19:53)
[2022-08-28] MEDS ORDERED: WARFARIN 5 MG TABLET PO SCH (14:00)
[2022-08-28] MEDS: WARFARIN 5 MG TABLET PO SCH (16:50)
[2022-08-28] MEDS: ENOXAPARIN 80 MG/0.8 ML SYRINGE SQ SCH (16:51)
[2022-08-29] MEDS: ENOXAPARIN 80 MG/0.8 ML SYRINGE SQ SCH ×3 (00:20→20:48)
[2022-08-29] MEDS: hydrOXYzine 25 MG TABLET PO PRN ×2 (00:29→11:54)
[2022-08-29 00:52] LABS: Amphetamine Screen,Urine Suspect positive; Barbiturate Screen,Urine None detected; Benzodiazepines Screen,Urine None detected; Cannabinoid Screen,Urine Suspect Positive; Cocaine Screen,Urine None detected; Opiate Screen,Urine None detected; Oxycodone, Urine Screen Suspect Positive; Phencyclidine Screen,Urine None detected
[2022-08-29] MEDS: DILTIAZEM 125 MG in DEXTROSE 5% IN WATER 100 ML IV SCH (03:05)
[2022-08-29] MEDS: oxyCODONE HCL 5 MG TABLET PO PRN ×4 (03:09→20:47)
[2022-08-29] MEDS: DILTIAZEM 30 MG TABLET PO SCH (04:26)
[2022-08-29] MEDS: 0.9 % SODIUM CHLORIDE 10 ML SYRINGE IV SCH ×3 (05:42→20:49)
[2022-08-29] MEDS: PANTOPRAZOLE 40 MG TABLET PO SCH (07:37)
[2022-08-29 08:36] LABS: Hemoglobin 12.8 g/dL (11.2-15.7); Mean Cell Volume 94.9 fL (80.0-100.0); Mean Corpuscular HGB Conc 31.2 g/dL (31.0-36.0); Mean Platelet Volume 9.8 fL (8.8-12.5); Platelet Count 298 K/mcL (140-440); RBC 4.32 M/mcL (3.59-5.38); Red Cell Distribution Width 14.8 % (11.5-14.5); WBC 17.2 K/mcL (4.5-11.0)
[2022-08-29 08:43] LABS: INR 1.3 (0.9-1.1); Prothrombin Time 16.6 sec (11.9-14.5)
[2022-08-29] MEDS: AMIODARONE HCL 200 MG TABLET PO SCH ×2 (08:50→20:47)
[2022-08-29] MEDS: SPIRONOLACTONE 25 MG TABLET PO SCH (08:51)
[2022-08-29] MEDS: LISINOPRIL 2.5 MG TABLET PO SCH (08:51)
[2022-08-29] MEDS: levETIRAcetam 500 MG TABLET PO SCH (08:51)
[2022-08-29] MEDS: FUROSEMIDE 40 MG TABLET PO SCH (08:51)
[2022-08-29] MEDS: IPRATROPIUM/ALBUTEROL 3 ML AMPUL.NEB NEB SCH ×4 (08:51→21:44)
[2022-08-29] MEDS: guaiFENesin 600 MG TAB.SR.12H PO SCH ×2 (08:51→20:48)
[2022-08-29] MEDS: BUDESONIDE 0.5 MG/2 ML AMPUL.NEB NEB SCH ×2 (08:51→21:44)
[2022-08-29] MEDS: METOPROLOL SUCCINATE 50 MG TAB.XL.24H PO SCH (08:52)
[2022-08-29 09:13] LABS: ALT/SGPT 53 U/L (<40); AST/SGOT 23 U/L (<32); Albumin 3.8 gm/dL (3.2-5.2); Albumin/Globulin Ratio 1.6 (1.0-2.3); Alkaline Phosphatase 110 U/L (39-117); Bilirubin,Total 0.4 mg/dL (0.1-1.0); Blood Urea Nitrogen 25 mg/dL (6-20); Calcium 8.8 mg/dL (8.6-10.4); Carbon Dioxide 27 mmol/L (22-30); Chloride 100 mmol/L (96-108); Globulin 2.4 gm/dL (2.2-3.7); Glomerular Filtration Rate 51; Glucose 105 mg/dL (70-105)
[2022-08-29] MEDS: IPRATROPIUM ALBUTEROL INH SCH ×4 (09:17→20:49)
[2022-08-29] MEDS: ACTUATION MIST INH SCH ×4 (09:17→20:49)
[2022-08-29] MEDS: AZITHROMYCIN 500 MG in DEXTROSE 5% IN WATER 250 ML IV SCH (10:11)
--- NOTE | 2022-08-29 10:59 | Internal Med Progress Note ---
SUBJECTIVE Subjective Patient information: Note initiated : 08/29/22 at 10:49 am Service Date, if different from initiated Date: [] Patient: Anyi Mora a 56 y/o F admitted on 08/27/22 for shortness of breath. Chief Complaint: [] Additional PMFSH (Level 3 Only): Ms. 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 valve 15 years ago for which she takes warfarin, asthma/COPD overlap, seizure disorder, everyday smoker presented with increased shortness of breath for 2 to 3 weeks. Patient states she had been to ED at least 3 times at [facility] in the past couple weeks. Patient reports she has been compliant with all her prescribed medications including diuretics, amiodarone and metoprolol. Patient reports increasing dyspnea on exertion, orthopnea and has to use 2 pillows at night, paroxysmal nocturnal dyspnea as well. Patient also reported cough and some increased in sputum production however denies any f ever or chills. She is a smoker however has not smoking for past 2 weeks due to increased shortness of breath. She lives with her and denies any sick contact. EKG showed with RVR, ventricular rate 146 bpm, nonspecific ST-T wave changes. Prolonged QTc 543 msec. Troponin x2 was negative. proBNP was elevated 5675. WBC 71607 with neutrophilia, Procal 0.11, respiratory viral panel negative. PT/INR 19.5, 1.7 chest x-ray with mild interstitial edema throughout the lungs consistent with moderate CHF. Patient received diltiazem 20mg IV, Bumex 1 mg and nitroglycerin. Patient also received albuterol, prednisone and azithromycin. Patient was admitted to ICU on diltiazem gtt. for A-fib with RVR. CT angiogram chest was obtained which showed no evidence of PE, no obvious pulmonary infiltrate. Urine toxicology obtained was positive for methamphetamine, marijuana and opioids however she did receive opioid on the floor. 08/29. Patient was seen and examined, labs and vitals reviewed. She reported feeling better. Discussed findings of echocardiogram. Left ventricular ejection fraction about 18-25%. Severe global hypokinesis of left ventricle, right ventricular function mild to moderately reduced, bioprosthetic bileaflet mitral valve with normal functioning, moderate to severe TR elevated pulmonary artery pressure, no pericardial effusion. proBNP obtained improved to 1393 from 5675 on admission. Patient is afebrile however WBC count is trending up to 17.2 from 16,000 yesterday. Patient is on azithromycin, discussed with pharmacy to check if patient had any severe allergies, patient had nausea to penicillin however there is no record if she received cephalosporins. No evidence of severe allergic response. Will transition to IV ceftriaxone. Patient also converted last night to sinus rhythm with heart rate mostly 80s to 90s. Pharmacy is dosing warfarin, INR 1.3 today. Serum creatinine went up to 1.2 from 0.9 yesterday. Review of systems Constitutional Constitutional: No fever or chills, she feels improved EENT Eyes: Absent change in vision or diplopia Ears: Present decreased hearing; Absent ear discharge Nose, mouth and throat: Present epistaxis; Absent nasal discharge Cardiovascular Cardiovascular: No chest pain, less dyspnea Respiratory Respiratory: Present less cough and wheezing, minimal sputum production Gastrointestinal Gastrointestinal: Absent abdominal pain, diarrhea, hematemesis or melena Genitourinary Genitourinary: Absent dysuria, urinary frequency or urinary incontinence Musculoskeletal Musculoskeletal: Absent muscle weakness; Absent arthralgias, back pain or joint swelling Integumentary Integumentary: Absent erythema or rash Neurological Neurological: Absent abnormal movements, abnormal speech or confusion Psychiatric Psychiatric: Absent confusion, depression or difficulty concentrating Endocrine Endocrine: Absent heat intolerance, palpitations or polydipsia Allergic/Immunologic Allergic/Immunologic: Absent uticaria EXAM Constitutional General appearance: Alert and awake, sitting up comfortably Head Head exam: Present atraumatic and normocephalic Eye Eye exam: Present EOMI and PERRL; Absent conjunctival injection or scleral ict erus Pupils: Present normal accommodation ENT ENT exam: Present mucous membranes dry and normal oropharynx Neck Neck exam: Absent lymphadenopathy, tenderness or thyromegaly Respiratory Additional comments: Less rhonchi and wheeze, improved from before, 95% on room air Cardiovascular Cardiovascular exam: Present irregular rhythm, +S1, +S2 and systolic murmur, no peripheral edema GI/Abdominal GI/Abdominal exam: Present normal bowel sounds and soft; Absent organomegaly, re bound or tenderness Extremities Exam Extremities exam: Present normal capillary refill; Absent calf tenderness or pedal edema Neurological Exam Neurological exam: Present alert, CN II-XII intact and oriented X3; Absent motor sensory deficit Psychiatric Psychiatric exam: Appears relaxed and pleasant, reactive affect Skin Skin exam: Present dry and intact; Absent erythema or rash Assessment and plan Atrial fibrillation with RVR. EKG with A-fib with RVR, ventricular rate 146 bpm. Patient reports compliance with her metoprolol and amiodarone. Troponin negative. TSH within normal limit. Electrolytes stable. CT chest angiogram with no PE. She converted to sinus rhythm overnight. Heart rate between 80s- 90s, however patient is receiving diltiazem. Echocardiogram is back, left ventricular ejection fraction about 18-25% (previously 15%). Severe global hypokinesis of left ventricle, right ventricular function mild to moderately reduced, bioprosthetic bileaflet mitral valve with normal functioning, moderate to severe TR elevated pulmonary artery pressure, no pericardial effusion. Di scontinue Cardizem in the light of severe cardiomyopathy. Increase metoprolol to succinate to 150 mg daily, given additional dose of metoprolol 25 mg overnight. Continue amiodarone 200 mg twice daily. Continue to monitor on telemetry. INR is subtherapeutic, pharmacy is managing warfarin dose, ap preciate input. Severe cardiomyopathy presumed drug-induced in the setting of methamphetamine abuse. EF 18-25%. Patient is on beta-heidi, lisinopril, diuretics. Urine toxicology again is positive for methamphetamine. 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 See above. proBNP obtained improved to 1393 from 5675 on admission. Patient received IV Bumex in the ER. Continue with home dose Lasix. Monitor I's and O's. Monitor renal function and electrolytes Sepsis. Patient presented with tachycardia, tachypnea, leukocytosis and COPD exacerbation COPD exacerbation. Patient with cough, shortness of breath, bilateral wheezing and Rales, leukocytosis present. Chest x-ray without any acute infiltrates. CT angiogram chest showed no evidence of PE, mild CHF. No significant infiltrate. DuoNebs, and budesonide to continue. Leukocytosis trending up. DC azithromycin, start patient on IV ceftriaxone. Patient is afebrile. Active smoker. Counseled on smoking cessation. Patient refused nicotine replacement therapy Status post mitral valve replacement. Patient had [facility] valve 15 years ago. She is on warfarin, INR is subtherapeutic. We will continue with agustín mathew. Pharmacy is managing warfarin dose. DVT prophylaxis, on warfarin CODE STATUS, full code Portions of this chart may have been created with [employer] voice recognition software. Occasional wrong-word or sound-like substitutions may have occurred due to the inherent limitations of voice recognition software. Please read the chart carefully and recognize, using context, where the substitutions have occurred. Constitutional Vitals: Vital Signs Temp Pulse Resp BP Pulse Ox O2 Del Method 98.4 F 72 16 118/90 96 Room Air 08/29/22 08:00 08/29/22 10:00 08/29/22 10:00 08/29/22 10:00 08/29/22 10:00 08/29/22 08:51 Period Temp Pulse Resp BP Sys/Hearn Pulse Ox O2 Del Method O2 Flow Rate Last 24 Hr 97 F-98.4 F 4-115 13-28 90-120/66-90 92-100 Room Air-Room Air Intake and Output 08/28/22 08/29/22 08/29/22 19:59 03:59 11:59 Intake Total 400 773 597 Output Total 150 600 Balance 400 623 -3 Weight 67.222 kg 68.81 kg Intake & Output: Intake & Output 08/28/22 08/29/22 08/29/22 19:59 03:59 11:59 Intake Total 400 773 597 Output Total 150 600 Balance 400 623 -3 Weight 67.222 kg 68.81 kg Intake: IV 280 Zithromax 500 mg In Dextrose 5% 250 in Water 250 ml @ 250 mls/hr IV Q24H [facility] Rx#:[id number] Cardizem 125 mg In Dextrose 5% 30 in Water 100 ml @ 5 MG/HR 5 mls /hr IV Q12H [facility]US Rx#:[id number] Oral 120 773 597 Output: Void Amount 150 600 Other: Meal Dinner Breakfast Percent of Meal Consumed 100% 100% Feeding Ability Independent Independent Nourishment/Supplement name ice cream Urine Appearance Clear Clear Urine Color Yellow Pale Stool Size Moderate Stool Color Brown Yellow Stool Consistency Normal for Patient Formed Radha # Bowel Movements 0 OBJ DATA Labs 08/29/22 07:46 08/29/22 07:45 Labs: Abnormal Lab Results 08/29/22 08/29/22 08/29/22 07:46 07:45 07:45 WBC 17.2 H RDW 14.8 H Immature Gran % (Auto) Neut % (Auto) Lymph % (Auto) Seg Neutrophils % Lymphocytes % Immature Gran # Absolute Neutrophils POC PT PT POC INR INR POC Total CO2 POC BUN BUN 25 H Creatinine 1.2 H Glucose POC Glucose POC WB Ioniz Calcium AST ALT 53 H Alkaline Phosphatase NT-Pro-B Natriuret Pep 1393.0 H Procalcitonin Ur Oxycodone Screen Ur Amphetamines Screen U Marijuana (THC) Screen 08/29/22 08/28/22 08/28/22 05:00 22:39 07:06 WBC RDW Immature Gran % (Auto) Neut % (Auto) Lymph % (Auto) Seg Neutrophils % Lymphocytes % Immature Gran # Absolute Neutrophils POC PT PT 16.6 H 15.9 H POC INR INR 1.3 H 1.2 H POC Total CO2 POC BUN BUN Creatinine Glucose POC Glucose POC WB Ioniz Calcium AST ALT Alkaline Phosphatase NT-Pro-B Natriuret Pep Procalcitonin Ur Oxycodone Screen Suspect positive A Ur Amphetamines Screen Suspect positive A U Marijuana (THC) Screen Suspect positive A 08/28/22 08/28/22 08/27/22 07:06 07:06 14:07 WBC 16.7 H RDW 14.6 H Immature Gran % (Auto) Neut % (Auto) Lymph % (Auto) Seg Neutrophils % 89 H Lymphocytes % 6 L Immature Gran # Absolute Neutrophils POC PT PT POC INR INR POC Total CO2 POC BUN BUN 22 H Creatinine Glucose 156 H 128 H POC Glucose POC WB Ioniz Calcium AST 37 H ALT 65 H 76 H Alkaline Phosphatase 130 H 136 H NT-Pro-B Natriuret Pep Procalcitonin Ur Oxycodone Screen Ur Amphetamines Screen U Marijuana (THC) Screen 08/27/22 08/27/22 08/27/22 08:57 07:25 07:25 WBC RDW Immature Gran % (Auto) Neut % (Auto) Lymph % (Auto) Seg Neutrophils % Lymphocytes % Immature Gran # Absolute Neutrophils POC PT 19.5 H PT POC INR 1.7 H INR POC Total CO2 POC BUN BUN Creatinine Glucose POC Glucose POC WB Ioniz Calcium AST ALT Alkaline Phosphatase NT-Pro-B Natriuret Pep 5675.0 H Procalcitonin 0.11 H Ur Oxycodone Screen Ur Amphetamines Screen U Marijuana (THC) Screen 08/27/22 08/27/22 07:25 07:20 WBC 12.4 H RDW 14.7 H Immature Gran % (Auto) 0.7 H Neut % (Auto) 79.4 H Lymph % (Auto) 12.5 L Seg Neutrophils % Lymphocytes % Immature Gran # 0.09 H Absolute Neutrophils 9.80 H POC PT PT POC INR INR POC Total CO2 32.0 H POC BUN 42 H BUN Creatinine Glucose POC Glucose 117 H POC WB Ioniz Calcium 1.02 L AST ALT Alkaline Phosphatase NT-Pro-B Natriuret Pep Procalcitonin Ur Oxycodone Screen Ur Amphetamines Screen U Marijuana (THC) Screen Meds: Medications Acetaminophen (Acetaminophen 500 Mg Tablet) 500 mg PO Q6HP PRN; Protocol PRN Reason: Pain Last Admin: 08/27/22 20:43 Dose: 500 mg Albuterol/Ipratropium (Ipratropium/Albuterol 3 Ml Ampul.Neb) 3 ml NEB QID [facility] Last Admin: 08/29/22 08:51 Dose: 3 ml Amiodarone HCl (Amiodarone Hcl 200 Mg Tablet) 200 mg PO BID [facility] Last Admin: 08/29/22 08:50 Dose: 200 mg Budesonide (Budesonide 0.5 Mg/2 Ml Ampul.Neb) 0.5 mg NEB Q12 [facility] Last Admin: 08/29/22 08:51 Dose: 0.5 mg Ceftriaxone Sodium (Ceftriaxone 1 Gm Vial) 1 gm IV Q24H [facility] Diltiazem HCl (Diltiazem 30 Mg Tablet) 30 mg PO Q8H [facility] Last Admin: 08/29/22 04:26 Dose: Not Given Enoxaparin Sodium (Enoxaparin 80 Mg/0.8 Ml Syringe) 70 mg SQ BID [facility] Last Admin: 08/29/22 08:51 Dose: 70 mg Furosemide (Furosemide 40 Mg Tablet) 40 mg PO QAM [facility] Last Admin: 08/29/22 08:51 Dose: 40 mg Guaifenesin (Guaifenesin 600 Mg Tab.Sr.12h) 600 mg PO BID [facility] Last Admin: 08/29/22 08:51 Dose: 600 mg Hydroxyzine HCl (Hydroxyzine 25 Mg Tablet) 25 mg PO TIDP PRN PRN Reason: Anxiety Last Admin: 08/29/22 00:29 Dose: 25 mg Diltiazem HCl 125 mg/ Dextrose 125 mls @ 5 mls/hr IV Q12H [facility]; Protocol Last Admin: 08/29/22 03:05 Dose: Not Given Levetiracetam (Levetiracetam 500 Mg Tablet) 500 mg PO QDAY [facility] Last Admin: 08/29/22 08:51 Dose: 500 mg Lisinopril (Lisinopril 2.5 Mg Tablet) 2.5 mg PO QDAY [facility] Last Admin: 08/29/22 08:51 Dose: 2.5 mg Metoprolol Succinate (Metoprolol Succinate 50 Mg Tab.Xl.24h) 100 mg PO QDAY [facility] Last Admin: 08/29/22 08:52 Dose: 100 mg Ondansetron HCl (Ondansetron 4 Mg Odt Tablet) 4 mg PO Q8HP PRN PRN Reason: nausea and vomiting Last Admin: 08/28/22 12:33 Dose: 4 mg Oxycodone HCl (Oxycodone Hcl 5 Mg Tablet) 5 mg PO Q6HP PRN; Protocol PRN Reason: Per Pain Protocol Last Admin: 08/29/22 08:52 Dose: 5 mg Pantoprazole Sodium (Pantoprazole 40 Mg Tablet) 40 mg PO QAMAC [facility] Last Admin: 08/29/22 07:37 Dose: 40 mg Ipratropium- Albuterol 20-100 Mcg /Actuation Mist 2 dose INH QID [facility] Last Admin: 08/29/22 09:17 Dose: Not Given Senna (Sennosides 1 Tablet) 1 tab PO HSP PRN PRN Reason: Constipation Sodium Chloride (0.9 % Sodium Chloride 10 Ml Syringe) 10 ml IV Q8 [facility] Last Admin: 08/29/22 05:42 Dose: 10 ml Spironolactone (Spironolactone 25 Mg Tablet) 25 mg PO QDAY [facility] Last Admin: 08/29/22 08:51 Dose: 25 mg Warfarin Sodium (Warfarin Per Pharmacy) 1 order PO UD [facility] Warfarin Sodium (Warfarin 5 Mg Tablet) 10 mg PO DAILY@1400 [facility] Last Admin: 08/28/22 16:50 Dose: 10 mg A/P Assessment and plan (1) Cardiomyopathy: Status: Acute (2) Atrial fibrillation/flutter: Status: Acute (3) Congestive heart failure: Status: Acute Qualifiers: Heart failure chronicity: acute on chronic Heart failure type: unspecified Qualified Code(s): I50.9 - Heart failure, unspecified (4) History of artificial heart valve: Status: Acute Time Spent With Patient Time: Total time spent is greater than 50% in coordination of care (as documented) at patient's floor/unit and/or counseling patient: Total Critical Care Time: 55
[2022-08-29] MEDS: cefTRIAXone 1 GM VIAL IV SCH (11:04)
[2022-08-29 13:41] LABS: Band Neutrophils % 1 % (0-10); Lymphocytes % 5 % (15-49); Monocytes % (Manual) 4 % (1-12); Platelet Estimate NORMAL (Normal); RBC Morphology NORMAL (Normal); Segmented Neutrophils % 90 % (38-78)
[2022-08-29] MEDS: WARFARIN 5 MG TABLET PO SCH (14:10)
[2022-08-29] MEDS ORDERED: METOPROLOL SUCCINATE 25 MG TAB.XL.24H PO SCH ×2 (18:00→21:00)
[2022-08-30] MEDS: 0.9 % SODIUM CHLORIDE 10 ML SYRINGE IV SCH ×2 (06:02→13:46)
[2022-08-30 06:25] LABS: Hematocrit 39.6 % (34.1-44.9); Hemoglobin 12.6 g/dL (11.2-15.7); Mean Cell Volume 95.4 fL (80.0-100.0); Mean Corpuscular HGB Conc 31.8 g/dL (31.0-36.0); Mean Platelet Volume 9.5 fL (8.8-12.5); Platelet Count 286 K/mcL (140-440); RBC 4.15 M/mcL (3.59-5.38); Red Cell Distribution Width 14.7 % (11.5-14.5)
[2022-08-30 06:40] LABS: INR 2.2 (0.9-1.1); Prothrombin Time 24.8 sec (11.9-14.5)
[2022-08-30 06:48] LABS: ALT/SGPT 38 U/L (<40); AST/SGOT 23 U/L (<32); Albumin 3.8 gm/dL (3.2-5.2); Albumin/Globulin Ratio 1.7 (1.0-2.3); Alkaline Phosphatase 103 U/L (39-117); Bilirubin,Total 0.2 mg/dL (0.1-1.0); Blood Urea Nitrogen 35 mg/dL (6-20); Calcium 8.6 mg/dL (8.6-10.4); Carbon Dioxide 27 mmol/L (22-30); Chloride 102 mmol/L (96-108); Globulin 2.2 gm/dL (2.2-3.7); Glomerular Filtration Rate 51; Glucose 74 mg/dL (70-105)
--- NOTE | 2022-08-30 07:15 | EKG ---
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
--- NOTE | 2022-08-30 07:20 | EKG ---
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 Measurements Intervals [place] Rate: 73 P: 95 UT: 210 QRS: 14 QRSD: 91 T: 90 QT: 495 QTc: 538 Interpretive Statements Sinus rhythm Atrial premature complex Prolonged UT interval Low voltage, precordial leads Nonspecific T abnormalities, lateral leads Prolonged QT interval Electronically Signed On 08-30-2022 7:20:41 PDT by Nguyễn Solomon M.D. /[email or web address]/[id number]
[2022-08-30] MEDS: PANTOPRAZOLE 40 MG TABLET PO SCH (07:47)
--- NOTE | 2022-08-30 08:00 | Internal Med Progress Note ---
SUBJECTIVE Subjective Patient information: Note initiated : 08/30/22 at 7:57 am Service Date, if different from initiated Date: [] Patient: Anyi Mora a 56 y/o F admitted on 08/27/22 for shortness of breath. Chief Complaint: [] Additional PMFSH (Level 3 Only): Ms. 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 valve 15 years ago for which she takes warfarin, asthma/COPD overlap, seizure disorder, everyday smoker presented with increased shortness of breath for 2 to 3 weeks. Patient states she had been to ED at least 3 times at [facility] in the past couple weeks. Patient reports she has been compliant with all her prescribed medications including diuretics, amiodarone and metoprolol. Patient reports increasing dyspnea on exertion, orthopnea and has to use 2 pillows at night, paroxysmal nocturnal dyspnea as well. Patient also reported cough and some increased in sputum production however denies any fever or chills. She is a smoker however has not smoking for past 2 weeks due to increased shortness of breath. She lives with her and denies any sick contact. EKG showed with RVR, ventricular rate 146 bpm, nonspecific ST-T wave changes. Prolonged QTc 543 msec. Troponin x2 was negative. proBNP was elevated 5675. WBC 63186 with neutrophilia, Procal 0.11, respiratory viral panel negative. PT/INR 19.5, 1.7 chest x-ray with mild interstitial edema throughout the lungs consistent with moderate CHF. Patient received diltiazem 20mg IV, Bumex 1 mg and nitroglycerin. Patient also received albuterol, prednisone and azithromycin. Patient was admitted to ICU on diltiazem gtt. for A-fib with RVR. CT angiogram chest was obtained which showed no evidence of PE, no obvious pulmonary infiltrate. Urine toxicology obtained was positive for methamphetamine, marijuana and opioids however she did receive opioid on the floor. Patient converted to sinus rhythm in the early hours of 08/29 morning. Echocardiogram showed LVEF 18-25%. Severe global hypokinesis of left ventricle, right ventricular function mild to moderately reduced, bioprosthetic bileaflet mitral valve with normal functioning, moderate to severe TR elevated pulmonary artery pressure, no pericardial effusion. Repeat proBNP obtained improved to 1393 from 5675 on admission. Patient afebrile however WBC count was trending up to 17. patient was on azithromycin and this was changed to ceftriaxone. 08/30. Patient reports she is feeling better, leukocytosis down to 11,000 from 17,000 yesterday after starting ceftriaxone. Serum creatinine stable at 1.2. Patient heart rate remains controlled. Review of systems Constitutional Constitutional: No fever or chills, feels better EENT Eyes: Absent change in vision or diplopia Ears: Present decreased hearing; Absent ear discharge Nose, mouth and throat: No nasal discharge Cardiovascular Cardiovascular: No chest pain, less dyspnea Respiratory Respiratory: Present cough is resolving, less short of breath Gastrointestinal Gastrointestinal: Absent abdominal pain, diarrhea, hematemesis or melena Genitourinary Genitourinary: Absent dysuria, urinary frequency or urinary incontinence Musculoskeletal Musculoskeletal: Absent muscle weakness; Absent arthralgias, back pain or joint swelling Integumentary Integumentary: Absent erythema or rash Neurological Neurological: Absent abnormal movements, abnormal speech or confusion Psychiatric Psychiatric: Absent confusion, depression or difficulty concentrating Endocrine Endocrine: Absent heat intolerance, palpitations or polydipsia Allergic/Immunologic Allergic/Immunologic: Absent uticaria EXAM Constitutional General appearance: Alert and awake, sitting up comfortably Head Head exam: Present atraumatic and normocephalic Eye Eye exam: Present EOMI and PERRL; Absent conjunctival injection or scleral icterus Pupils: Present normal accommodation ENT ENT exam: Present mucous membranes dry and normal oropharynx Neck Neck exam: Absent lymphadenopathy, tenderness or thyromegaly Respiratory Additional comments: Less rhonchi and wheeze, improved from before, 94% on room air Cardiovascular Cardiovascular exam: Present irregular rhythm, +S1, +S2 and systolic murmur, no peripheral edema GI/Abdominal GI/Abdominal exam: Present normal bowel sounds and soft; Absent organomegaly, rebound or tenderness Extremities Exam Extremities exam: Present normal capillary refill; Absent calf tenderness or pedal edema Neurological Exam Neurological exam: Present alert, CN II-XII intact and oriented X3; Absent motor sensory deficit Psychiatric Psychiatric exam: Appropriate mood and stable affect Skin Skin exam: Present dry and intact; Absent erythema or rash Assessment and plan Atrial fibrillation with RVR. EKG with A-fib with RVR, ventricular rate 146 bpm. Patient reports compliance with her metoprolol and amiodarone. Troponin negative. TSH within normal limit. Electrolytes stable. CT chest angiogram with no PE. She converted to sinus rhythm in the early hours of 08/29 and has r emained in sinus rhythm with heart rate in 80s-90s range. 2D echocardiogram with LVEF 18-25% (previously 15%). Severe global hypokinesis of left ventricle, right ventricular function mild to moderately reduced, bioprosthetic bileaflet mitral valve with normal functioning, moderate to severe TR elevated pulmonary artery pressure, no pericardial effusion. Continue metoprolol succinate 150 mg daily, amiodarone 200 mg twice daily. INR is now therapeutic, pharmacy input appreciated. Patient is monitored on telemetry. Severe cardiomyopathy presumed drug-induced in the setting of methamphetamine abuse. EF 18-25%. Patient is on beta-heidi, lisinopril, diuretics. Urine toxicology again is positive for methamphetamine and marijuana. 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 See above. proBNP improved to 1393 from 5675 on admission. Patient received IV Bumex in the ER. Continue with home dose Lasix. Monitor I's and O's. Monitor renal function and electrolytes Sepsis. Patient presented with tachycardia, tachypnea, leukocytosis and COPD exacerbation COPD exacerbation. Patient with cough, shortness of breath, bilateral wheezing and Rales, leukocytosis present. Chest x-ray without any acute infiltrates. CT angiogram chest showed no evidence of PE, mild CHF. No significant infiltrate. DuoNebs, and budesonide to continue. Leukocytosis resolved after starting patient on IV ceftriaxone, patient is afebrile. No adverse effect from ceftriaxone reported Active smoker. Counseled on smoking cessation. Patient refused nicotine replacement therapy Polysubstance abuse. Urine toxicology positive for amphetamine and marijuana and opioids however patient received opioids in the house. Patient admits to smoking marijuana every day however reports that last amphetamine use was a while ago and is surprised how her test is positive. Patient was counseled on complete abstinence from methamphetamine, She demonstrated understanding Status post mitral valve replacement. Patient had [facility] valve 15 years ago. INR within therapeutic range, pharmacy input appreciated. DVT prophylaxis, on warfarin CODE STATUS, full code Portions of this chart may have been created with [employer] voice recognition software. Occasional wrong-word or sound-like substitutions may have occurred due to the inherent limitations of voice recognition software. Please read the chart carefully and recognize, using context, where the substitutions have occurred. Constitutional Vitals: Vital Signs Temp Pulse Resp BP Pulse Ox O2 Del Method 98.6 F 73 18 120/86 100 Room Air 08/29/22 20:41 08/30/22 04:00 08/30/22 06:00 08/30/22 06:00 08/30/22 04:00 08/30/22 07:19 Period Temp Pulse Resp BP Sys/Hearn Pulse Ox O2 Del Method O2 Flow Rate Last 24 Hr 96.9 F-98.6 F 68-78 14-27 90-123/70-90 94-100 Room Air-Room Air Intake and Output 08/29/22 08/30/22 08/30/22 19:59 03:59 11:59 Intake Total 360 520 358 Output Total 400 700 200 Balance -40 -180 158 Weight 68.583 kg Intake & Output: Intake & Output 08/29/22 08/30/22 08/30/22 19:59 03:59 11:59 Intake Total 360 520 358 Output Total 400 700 200 Balance -40 -180 158 Weight 68.583 kg Intake: IV 0 Cardizem 125 mg In Dextrose 5% 0 in Water 100 ml @ 5 MG/HR 5 mls /hr IV Q12H [facility] Rx#:[id number] Oral 360 520 358 Output: Void Amount 400 700 200 Other: Meal Dinner peanut butter sandwich 2 popsicles Percent of Meal Consumed 100% 100% Feeding Ability Independent Independent Urine Appearance Clear Clear Clear Urine Color Dark Yellow Yellow Yellow OBJ DATA Labs 08/30/22 05:47 08/30/22 05:46 Labs: Abnormal Lab Results 08/30/22 08/30/22 08/30/22 05:47 05:46 05:46 WBC RDW 14.7 H Immature Gran % (Auto) Neut % (Auto) Lymph % (Auto) Seg Neutrophils % Lymphocytes % Immature Gran # Absolute Neutrophils POC PT PT 24.8 H POC INR INR 2.2 H BUN 35 H Creatinine 1.2 H Glucose AST ALT Alkaline Phosphatase NT-Pro-B Natriuret Pep Procalcitonin Ur Oxycodone Screen Ur Amphetamines Screen U Marijuana (THC) Screen 08/29/22 08/29/22 08/29/22 07:46 07:45 07:45 WBC 17.2 H RDW 14.8 H Immature Gran % (Auto) Neut % (Auto) Lymph % (Auto) Seg Neutrophils % 90 H Lymphocytes % 5 L Immature Gran # Absolute Neutrophils POC PT PT POC INR INR BUN 25 H Creatinine 1.2 H Glucose AST ALT 53 H Alkaline Phosphatase NT-Pro-B Natriuret Pep 1393.0 H Procalcitonin Ur Oxycodone Screen Ur Amphetamines Screen U Marijuana (THC) Screen 08/29/22 08/28/22 08/28/22 05:00 22:39 07:06 WBC RDW Immature Gran % (Auto) Neut % (Auto) Lymph % (Auto) Seg Neutrophils % Lymphocytes % Immature Gran # Absolute Neutrophils POC PT PT 16.6 H 15.9 H POC INR INR 1.3 H 1.2 H BUN Creatinine Glucose AST ALT Alkaline Phosphatase NT-Pro-B Natriuret Pep Procalcitonin Ur Oxycodone Screen Suspect positive A Ur Amphetamines Screen Suspect positive A U Marijuana (THC) Screen Suspect positive A 08/28/22 08/28/22 08/27/22 07:06 07:06 14:07 WBC 16.7 H RDW 14.6 H Immature Gran % (Auto) Neut % (Auto) Lymph % (Auto) Seg Neutrophils % 89 H Lymphocytes % 6 L Immature Gran # Absolute Neutrophils POC PT PT POC INR INR BUN 22 H Creatinine Glucose 156 H 128 H AST 37 H ALT 65 H 76 H Alkaline Phosphatase 130 H 136 H NT-Pro-B Natriuret Pep Procalcitonin Ur Oxycodone Screen Ur Amphetamines Screen U Marijuana (THC) Screen 08/27/22 08/27/22 08/27/22 08:57 07:25 07:25 WBC RDW Immature Gran % (Auto) Neut % (Auto) Lymph % (Auto) Seg Neutrophils % Lymphocytes % Immature Gran # Absolute Neutrophils POC PT 19.5 H PT POC INR 1.7 H INR BUN Creatinine Glucose AST ALT Alkaline Phosphatase NT-Pro-B Natriuret Pep 5675.0 H Procalcitonin 0.11 H Ur Oxycodone Screen Ur Amphetamines Screen U Marijuana (THC) Screen 08/27/22 07:25 WBC 12.4 H RDW 14.7 H Immature Gran % (Auto) 0.7 H Neut % (Auto) 79.4 H Lymph % (Auto) 12.5 L Seg Neutrophils % Lymphocytes % Immature Gran # 0.09 H Absolute Neutrophils 9.80 H POC PT PT POC INR INR BUN Creatinine Glucose AST ALT Alkaline Phosphatase NT-Pro-B Natriuret Pep Procalcitonin Ur Oxycodone Screen Ur Amphetamines Screen U Marijuana (THC) Screen Meds: Medications Acetaminophen (Acetaminophen 500 Mg Tablet) 500 mg PO Q6HP PRN; Protocol PRN Reason: Pain Last Admin: 08/27/22 20:43 Dose: 500 mg Albuterol/Ipratropium (Ipratropium/Albuterol 3 Ml Ampul.Neb) 3 ml NEB QID [facility] Last Admin: 08/29/22 21:44 Dose: Not Given Amiodarone HCl (Amiodarone Hcl 200 Mg Tablet) 200 mg PO BID [facility] Last Admin: 08/29/22 20:47 Dose: 200 mg Budesonide (Budesonide 0.5 Mg/2 Ml Ampul.Neb) 0.5 mg NEB Q12 [facility] Last Admin: 08/29/22 21:44 Dose: Not Given Ceftriaxone Sodium (Ceftriaxone 1 Gm Vial) 1 gm IV Q24H [facility] Last Admin: 08/29/22 11:04 Dose: 1 gm Enoxaparin Sodium (Enoxaparin 80 Mg/0.8 Ml Syringe) 70 mg SQ BID [facility] Last Admin: 08/29/22 20:48 Dose: 70 mg Furosemide (Furosemide 40 Mg Tablet) 40 mg PO QAM [facility] Last Admin: 08/29/22 08:51 Dose: 40 mg Guaifenesin (Guaifenesin 600 Mg Tab.Sr.12h) 600 mg PO BID [facility] Last Admin: 08/29/22 20:48 Dose: 600 mg Hydroxyzine HCl (Hydroxyzine 25 Mg Tablet) 25 mg PO TIDP PRN PRN Reason: Anxiety Last Admin: 08/29/22 11:54 Dose: 25 mg Levetiracetam (Levetiracetam 500 Mg Tablet) 500 mg PO QDAY [facility] Last Admin: 08/29/22 08:51 Dose: 500 mg Lisinopril (Lisinopril 2.5 Mg Tablet) 2.5 mg PO QDAY [facility] Last Admin: 08/29/22 08:51 Dose: 2.5 mg Metoprolol Succinate (Metoprolol Succinate 50 Mg Tab.Xl.24h) 150 mg PO DAILY [facility] Ondansetron HCl (Ondansetron 4 Mg Odt Tablet) 4 mg PO Q8HP PRN PRN Reason: nausea and vomiting Last Admin: 08/28/22 12:33 Dose: 4 mg Oxycodone HCl (Oxycodone Hcl 5 Mg Tablet) 5 mg PO Q6HP PRN; Protocol PRN Reason: Per Pain Protocol Last Admin: 08/29/22 20:47 Dose: 5 mg Pantoprazole Sodium (Pantoprazole 40 Mg Tablet) 40 mg PO QAMAC [facility] Last Admin: 08/30/22 07:47 Dose: 40 mg Ipratropium- Albuterol 20-100 Mcg /Actuation Mist 2 dose INH QID [facility] Last Admin: 08/29/22 20:49 Dose: Not Given Senna (Sennosides 1 Tablet) 1 tab PO HSP PRN PRN Reason: Constipation Sodium Chloride (0.9 % Sodium Chloride 10 Ml Syringe) 10 ml IV Q8 [facility] Last Admin: 08/30/22 06:02 Dose: 10 ml Spironolactone (Spironolactone 25 Mg Tablet) 25 mg PO QDAY [facility] Last Admin: 08/29/22 08:51 Dose: 25 mg Warfarin Sodium (Warfarin Per Pharmacy) 1 order PO [facility] [place] Sodium (Warfarin 5 Mg Tablet) 7.5 mg PO DAILY@1400 [facility] A/P Time Spent With Patient Time: Total time spent is greater than 50% in coordination of care (as documented) at patient's floor/unit and/or counseling patient: Initial: Total time with patient: 55 - 74 minutes
[2022-08-30 08:06] LABS: Lymphocytes % 10 % (15-49); Monocytes % (Manual) 8 % (1-12); Platelet Estimate NORMAL (Normal); Polychromasia FEW (None Seen); RBC Morphology ABNORMAL (Normal); Reactive Lymphocytes 1 % (0-2); Segmented Neutrophils % 81 % (38-78)
[2022-08-30] MEDS: levETIRAcetam 500 MG TABLET PO SCH (08:26)
[2022-08-30] MEDS: guaiFENesin 600 MG TAB.SR.12H PO SCH ×2 (08:26→20:12)
[2022-08-30] MEDS: AMIODARONE HCL 200 MG TABLET PO SCH ×2 (08:26→20:12)
[2022-08-30] MEDS: ENOXAPARIN 80 MG/0.8 ML SYRINGE SQ SCH ×2 (08:26→20:11)
[2022-08-30] MEDS: FUROSEMIDE 40 MG TABLET PO SCH (08:26)
[2022-08-30] MEDS: METOPROLOL SUCCINATE 50 MG TAB.XL.24H PO SCH (08:26)
[2022-08-30] MEDS: SPIRONOLACTONE 25 MG TABLET PO SCH (08:26)
[2022-08-30] MEDS: LISINOPRIL 2.5 MG TABLET PO SCH (08:29)
[2022-08-30] MEDS: ACTUATION MIST INH SCH ×4 (08:30→23:12)
[2022-08-30] MEDS: IPRATROPIUM ALBUTEROL INH SCH ×4 (08:30→23:12)
[2022-08-30] MEDS: oxyCODONE HCL 5 MG TABLET PO PRN ×2 (08:33→14:47)
[2022-08-30] MEDS: IPRATROPIUM/ALBUTEROL 3 ML AMPUL.NEB NEB SCH ×4 (09:10→22:11)
[2022-08-30] MEDS: BUDESONIDE 0.5 MG/2 ML AMPUL.NEB NEB SCH ×2 (09:10→22:11)
[2022-08-30] MEDS: cefTRIAXone 1 GM VIAL IV SCH (11:34)
[2022-08-30] MEDS: hydrOXYzine 25 MG TABLET PO PRN (12:14)
[2022-08-30] MEDS ORDERED: WARFARIN 5 MG TABLET PO SCH ×2 (14:00)
[2022-08-31 06:17] LABS: Hematocrit 44.6 % (34.1-44.9); Hemoglobin 13.9 g/dL (11.2-15.7); Mean Cell Volume 95.9 fL (80.0-100.0); Mean Corpuscular HGB Conc 31.2 g/dL (31.0-36.0); Mean Platelet Volume 9.3 fL (8.8-12.5); Platelet Count 301 K/mcL (140-440); RBC 4.65 M/mcL (3.59-5.38); Red Cell Distribution Width 14.4 % (11.5-14.5); WBC 9.7 K/mcL (4.5-11.0)
[2022-08-31 06:27] LABS: INR 2.8 (0.9-1.1); Prothrombin Time 30.5 sec (11.9-14.5)
[2022-08-31] MEDS: 0.9 % SODIUM CHLORIDE 10 ML SYRINGE IV SCH ×3 (07:28→10:59)
[2022-08-31 07:40] LABS: Basophils % (Manual) 1 % (0-2); Eosinophils % (Manual) 1 % (0-7); Lymphocytes % 14 % (15-49); Monocytes % (Manual) 14 % (1-12); Platelet Estimate NORMAL (Normal); RBC Morphology NORMAL (Normal); Segmented Neutrophils % 70 % (38-78)
[2022-08-31] MEDS: PANTOPRAZOLE 40 MG TABLET PO SCH (07:42)
[2022-08-31] MEDS: BUDESONIDE 0.5 MG/2 ML AMPUL.NEB NEB SCH (07:54)
[2022-08-31] MEDS: ACTUATION MIST INH SCH ×2 (07:54→12:01)
[2022-08-31] MEDS: IPRATROPIUM ALBUTEROL INH SCH ×2 (07:54→12:01)
[2022-08-31] MEDS: IPRATROPIUM/ALBUTEROL 3 ML AMPUL.NEB NEB SCH (07:54)
[2022-08-31] MEDS: LISINOPRIL 2.5 MG TABLET PO SCH (08:16)
[2022-08-31] MEDS: oxyCODONE HCL 5 MG TABLET PO PRN ×3 (08:16→12:48)
[2022-08-31] MEDS: METOPROLOL SUCCINATE 50 MG TAB.XL.24H PO SCH (08:16)
[2022-08-31] MEDS: SPIRONOLACTONE 25 MG TABLET PO SCH (08:16)
[2022-08-31] MEDS: guaiFENesin 600 MG TAB.SR.12H PO SCH (08:16)
[2022-08-31] MEDS: AMIODARONE HCL 200 MG TABLET PO SCH (08:16)
[2022-08-31] MEDS: levETIRAcetam 500 MG TABLET PO SCH (08:16)
[2022-08-31] MEDS: FUROSEMIDE 40 MG TABLET PO SCH (08:16)
[2022-08-31] MEDS ORDERED: predniSONE 20 MG TABLET PO SCH (09:00)
--- NOTE | 2022-08-31 10:39 | Discharge Summary ---
Discharge Provider Provider IMPORTANT FOLLOW-UP INFORMATION FOR PCP: Patient information: Note initiated : 08/31/22 at 10:37 am Service Date, if different from initiated Date: [] Patient: Anyi Mora a 56 y/o F admitted on 08/27/22 for shortness of breath. Chief Complaint: [] Date of admission: 08/27/22 13:45 Discharge date: 08/31/22 Primary care physician: [facility] Consults: 08/27/22 Consult to Physician [CONS] Stat Comment: Consulting Provider: Anderson Casillas Reason For Exam: Physician to Consult COURSE Hospital Course Hospital course: Ms. 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 valve 15 years ago for which she takes warfarin, asthma/COPD overlap, seizure disorder, everyday smoker presented with increased shortness of breath for 2 to 3 weeks. Patient states she had been to ED at least 3 times at [facility] in the past couple weeks. Patient reports she has been compliant with all her prescribed medications including diuretics, amiodarone and metoprolol. Patient reports increasing dyspnea on exertion, orthopnea and has to use 2 pillows at night, paroxysmal nocturnal dyspnea as well. Patient also reported cough and some increased in sputum production however denies any fever or chills. She is a smoker however has not smoking for past 2 weeks due to increased shortness of breath. She lives with her and denies any sick contact. EKG showed with RVR, ventricular rate 146 bpm, nonspecific ST-T wave changes. Prolonged QTc 543 msec. Troponin x2 was negative. proBNP was elevated 5675. WBC 74951 with neutrophilia, Procal 0.11, respiratory viral panel negative. PT/INR 19.5, 1.7 chest x-ray with mild interstitial edema throughout the lungs consistent with moderate CHF. Patient received diltiazem 20mg IV, Bumex 1 mg and nitroglycerin. Patient also received albuterol, prednisone and azithro mycin. Patient was admitted to ICU on diltiazem gtt. for A-fib with RVR. CT angiogram chest was obtained which showed no evidence of PE, no obvious pulmonary infiltrate. Urine toxicology obtained was positive for methamphetamine, marijuana and opioids however she did receive opioid on the floor. Patient converted to sinus rhythm in the early hours of 08/29 morning. Echocardiogram showed LVEF 18-25%. Severe global hypokinesis of left ventricle, right ventricular function mild to moderately reduced, bioprosthetic bileaflet mitral valve with normal functioning, moderate to severe TR elevated pulmonary artery pressure, no pericardial effusion. Repeat proBNP obtained improved to 1393 from 5675 on admission. Metoprolol XL was increased to 150 mg daily with excellent control of heart rate. Patient afebrile however WBC count was trending up to 17,000, antibiotic was changed to ceftriaxone from azithromycin and subsequently leukocytosis resolved. Patient heart rate remained controlled on. Her INR became therapeutic within range of 2.8. He was counseled on medication compliance and abstinence from methamphetamine. Patient will follow-up with her primary care provider as an outpatient. EXAM Constitutional General appearance: Alert and awake, no acute distress Head Head exam: Present atraumatic and normocephalic Eye Eye exam: Present EOMI and PERRL; Absent conjunctival injection or scleral icterus Pupils: Present normal accommodation ENT ENT exam: Present mucous membranes dry and normal oropharynx Neck Neck exam: Absent lymphadenopathy, tenderness or thyromegaly Respiratory Additional comments: Some Rales bilaterally but significant improvement, Cardiovascular Cardiovascular exam: Present S1 and S2, regular rhythm, murmur over tricuspid area GI/Abdominal GI/Abdominal exam: Present normal bowel sounds and soft; Absent organomegaly, rebound or tenderness Extremities Exam Extremities exam: Present normal capillary refill; Absent calf tenderness or pedal edema Neurological Exam Neurological exam: Present alert, CN II-XII intact and oriented X3; Absent motor sensory deficit Psychiatric Psychiatric exam: Appropriate mood and stable affect Skin Skin exam: Present dry and intact; Absent erythema or rash Assessment and plan Atrial fibrillation with RVR. EKG with A-fib with RVR, ventricular rate 146 bpm. Patient reports compliance with her metoprolol and amiodarone however this is questionable. Troponin negative. TSH within normal limit. Electrolytes stable. CT chest angiogram with no PE. She converted to sinus rhythm in the early hours of 08/29 and has remained in sinus rhythm with heart rate in 80s-90s range. 2D echocardiogram with LVEF 18-25% (previously 15%). Severe global hypokinesis of left ventricle, right ventricular function mild to moderately reduced, bioprosthetic bileaflet mitral valve with normal functioning, moderate to severe TR elevated pulmonary artery pressure, no pericardial effusion. Patient will continue with metoprolol succinate 150 mg daily, amiodarone 200 mg twice daily. INR is now therapeutic, patient to follow-up with primary care provider and outpatient lab work for INR. Severe cardiomyopathy presumed drug-induced in the setting of methamphetamine abuse. EF 18-25%. Patient is on beta-heidi, lisinopril, diuretics. Urine toxicology again is positive for methamphetamine and marijuana. 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 See above. proBNP improved to 1393 from 5675 on admission. Patient received IV Bumex in the ER. Continue with home dose Lasix. Monitor I's and O's. Monitor renal function and electrolytes Sepsis. Patient presented with tachycardia, tachypnea, leukocytosis and COPD exacerbation COPD exacerbation. Patient with cough, shortness of breath, bilateral wheezing and Rales, leukocytosis present. Chest x-ray without any acute infiltrates. CT angiogram chest showed no evidence of PE, mild CHF. No significant infiltrate. DuoNebs, and budesonide to continue. Leukocytosis resolved after starting patient on IV ceftriaxone, patient is afebrile. No adverse effect from ceftriaxone reported. Patient will be discharged on p.o. cefdinir to complete a 5-day course. Active smoker. Counseled on smoking cessation. Patient refused nicotine replacement therapy Polysubstance abuse. Urine toxicology positive for amphetamine and marijuana and opioids however patient received opioids in the house. Patient admits to smoking marijuana every day however reports that last amphetamine use was a while ago and is surprised how her test is positive. Patient was counseled on complete abstinence from methamphetamine, She demonstrated understanding Status post mitral valve replacement. Patient had [facility] [facility] valve 15 years ago. INR within therapeutic range, pharmacy input appreciated. Follow INR as outpatient DVT prophylaxis, on warfarin CODE STATUS, full code Discharge diagnosis: A-fib with RVR, CHF, cardiomyopathy, sepsis, COPD exacerbation Time spent discussing smoking cessation with patient: more than 10 minutes Time Spent with Patient Time attestation: Total time spent providing and/or coordinating discharge services: Time spent: Greater than 30 minutes EXAM Constitutional Vitals: Temp Pulse Resp BP Pulse Ox O2 Del Method 97.8 F 71 18 122/84 97 Room Air 08/31/22 07:55 08/31/22 07:57 08/31/22 07:57 08/31/22 07:55 08/31/22 07:57 08/31/22 07:57 Discharge Data Data Completed and Pending Labs on day of discharge: Labs from last 24 hours 08/31/22 08/31/22 05:18 05:18 WBC 9.7 RBC 4.65 Hgb 13.9 Hct 44.6 MCV 95.9 MCH 29.9 MCHC 31.2 RDW 14.4 Plt Count 301 MPV 9.3 Seg Neutrophils % 70 Lymphocytes % 14 L Monocytes % (Manual) 14 H Eosinophils % (Manual) 1 Basophils % (Manual) 1 Platelet Estimate Normal RBC Morphology Normal PT 30.5 H INR 2.8 H Discharge Plan Patient/Caregiver Discharge Instructions Activity: increase activity as tolerated Instructions: Heart Failure (GEN), A-fib (Atrial Fibrillation) (GEN), Methamphetamine Abuse (GEN), Low-Sodium Diet (GEN) Activity Restrictions/Additional Instructions: Strict abstinence from methamphetamine advised. Please take your medications as prescribed. Repeat INR in 2 to 3 days Prescriptions: New budesonide 0.5 mg/2 mL Suspension For Nebulization 0.5 mg inhalation Q12 30 Days Qty: 120 0RF guaifenesin [Mucus Relief ER] 600 mg Tablet Extended Release 12hr 600 mg PO BID Qty: 8 0RF metoprolol succinate 50 mg Tablet Extended Release 24 Hr 150 mg PO DAILY Qty: 180 0RF cefdinir 300 mg capsule 300 mg PO BID Qty: 8 0RF Continued hydroxyzine HCl 25 mg tablet 25 mg PO TID PRN (Reason: Anxiety) ipratropium-albuterol 20-100 mcg/actuation mist 2 puff inhalation BID lisinopril 2.5 mg tablet 2.5 mg PO QDAY marijuana edibles 1 dose PO DAILY albuterol sulfate [ProAir HFA] 90 mcg/actuation HFA aerosol inhaler 2 puff inhalation .Q4-6H PRN (Reason: sob) acetaminophen [Tylenol Extra Strength] 500 mg tablet 500 mg PO .Q6-8H PRN (Reason: Pain) warfarin 5 mg tablet 7.5 mg PO QDAY Rx Instructions: 5 mg mon.,,tuesday, 7.5 tuesday and tuesday levetiracetam [Keppra] 250 mg tablet 500 mg PO QDAY Rx Instructions: unsure of dose and not taken for a few weeks metoprolol succinate 100 mg tablet extended release 24 hr 100 mg PO QDAY Qty: 60 0RF ondansetron 4 mg tablet,disintegrating 4 mg PO Q8H PRN (Reason: nausea and vomiting) Qty: 10 0RF furosemide [Lasix] 40 mg tablet 40 mg PO QAM Qty: 60 0RF prednisone 20 mg tablet 20 mg PO DAILY Rx Instructions: Day 8 today 08/27/22 Discontinued amiodarone 200 mg tablet 200 mg PO BID doxycycline hyclate 100 mg tablet 100 mg PO BID Follow Up Plan Follow up with: Fauzia Haskins PA-C [Physician] - 09/06/22 1:40 pm (Please check in at 1:30 pm) Patient Disposition: Home, Self-Care Rehab Potential: Good Discharge Orders: Discharge Order (Routine); Ordered 08/31/22 Ordered By: Anderson Casillas
[2022-08-31] MEDS: cefTRIAXone 1 GM VIAL IV SCH (10:59)
[2022-08-31] MEDS ORDERED: WARFARIN 2 MG TABLET PO ONE (14:00)
[2022-09-06 15:54] LABS: Cannabinoid Confirmation Positive
== END 2022-08-31 12:55 | disposition home or self-care (01) | DRG 308 ==
LOC: ED 06:59 → ICU 13:45
PROVIDERS: ADMIT Internal Medicine; ATTEND Internal Medicine